=== PATIENT | male | born 1960 | race Caucasian/White ===

== ENCOUNTER 2016-10-29 08:32 | Observation (INO) | payer OTHER ==
[~2016-10-29] VITALS: Ht 188 cm; Wt 109.4 kg
[2016-10-29] VITALS (9 sets, daily range): BP systolic 121–150; BP diastolic 52–78
[~2016-10-29 08:32] MED LIST: ATEN1TAB3; PRD20T PO
[2016-10-29] MEDS ORDERED: POTA20TA15 (08:50)
[2016-10-29] MEDS ORDERED: CHOL500049 (08:50)
[2016-10-29] MEDS ORDERED: SERT50TA9 (08:50)
[2016-10-29] MEDS ORDERED: LACT10SO33 PO (08:52)
[2016-10-29] MEDS ORDERED: ATEN1TAB3 PO (08:53)
[2016-10-29] MEDS ORDERED: FURO40TA4 PO (08:53)
[2016-10-29] MEDS ORDERED: POTA-51 PO (08:53)
[2016-10-29 09:07] LABS: BASOPHILS % (AUTO) 1 % (0-10); EOSINOPHILS # (AUTO) 0.1 10^3/uL (0.0-0.3); EOSINOPHILS % (AUTO) 2 % (0-10); LYMPHOCYTES % (AUTO) 27 % (12-44); MEAN CORPUSCULAR HEMOGLOBIN 33 PG (25-34); MEAN CORPUSCULAR HGB CONC 35 G/DL (32-36); MEAN CORPUSCULAR VOLUME 93 FL (80-99); MEAN PLATELET VOLUME 9.9 FL (7.4-10.4); MONOCYTES # (AUTO) 0.5 X 10^3 (0.0-1.0); MONOCYTES % (AUTO) 14 % (0-12); NEUTROPHILS # (AUTO) 2.1 X 10^3 (1.8-7.8); NEUTROPHILS % (AUTO) 56 % (42-75); PLATELET COUNT 44 10^3/uL (130-400); RED BLOOD COUNT 3.51 10^6/uL (4.35-5.85); RED CELL DISTRIBUTION WIDTH 15.6 % (10.0-14.5); WHITE BLOOD COUNT 3.7 10^3/uL (4.3-11.0)
[2016-10-29 09:16] LABS: INR 1.7 (0.8-1.4); PROTHROMBIN TIME PATIENT 19.5 SEC (12.2-14.7)
--- NOTE | 2016-10-29 09:18 | ED General ---
General Chief Complaint: General Problems/Pain Stated Complaint: STOMACH BLOATING, SOA Nursing Triage Note: AMBULATED TO ROOM 03 WITH COMPLAINTS OF INCREASING ABD BLOATING, WEAKNESS, EDEMA IN LOWER LEGS, NOT URINATING FOR PAST 3 MONTHS. HAS BEEN TOLD HE IS END STAGE RENAL FAILURE. WAS SEEN BY DR ROMERO ON 10/22 Nursing Sepsis Screen: No Definite Risk Source of Information: Patient Exam Limitations: No Limitations History of Present Illness Time Seen by Provider: 09:16 Initial Comments Patient has a history of hepatitis C and alcoholism. He has been diagnosed with end-stage liver disease. He complains of increasing abdominal distention over the past few months. It now interferes with his respirations. Swelling in his feet. Urinary output is decreased. He has not yet seen a autocad detailer. Allergies and Home Medications Allergies Coded Allergies: No Known Drug Allergies (Unverified , 02/26/16) Home Medications Atenolol/Chlorthalidone 1 Each Tablet 1 EACH PO DAILY (Reported) Furosemide 40 Mg Tablet 40 MG PO DAILY (Reported) Lactulose 10 Gm/15 Ml Solution 10 GM PO (Reported) Potassium Chloride 20 Meq Tablet.er 40 MEQ PO BID (Reported) Constitutional: malaise weakness EENTM: no symptoms reported Respiratory: cough short of breath Cardiovascular: edema Gastrointestinal: abdominal pain Genitourinary: no symptoms reported Musculoskeletal: no symptoms reported Psychiatric/Neurological: No Symptoms Reported All Other Systems Reviewed Negative Unless Noted: Yes Past Utrwahq-Ksmqgt-Lmalyr Hx Patient Social History Alcohol Use: Past History Recreational Drug Use: Yes (PAST HX OF COCAINE, POT, ) Smoking Status: Current Everyday Smoker Recent Foreign Travel: No Contact w/Someone Who Travel: No Recent Infectious Disease Expo: No Recent Hopitalizations: No Surgeries HX Surgeries: Yes Surgeries: Orthopedic Respiratory Hx Respiratory Disorders: Yes Respiratory Disorders: COPD Cardiovascular Hx Cardiac Disorders: No Cardiac Disorders: Heart Attack, Hypertension Neurological Hx Neurological Disorders: No Genitourinary Hx Genitourinary Disorders: Yes Genitourinary Disorders: Renal Failure Gastrointestinal Hx Gastrointestinal Disorders: Yes Gastrointestinal Disorders: Abdominal Hernia, Hepatitis Musculoskeletal Hx Musculoskeletal Disorders: No Cancer Hx Cancer: No Psychosocial Hx Psychiatric Problems: No Reviewed Nursing Assessment Reviewed/Agree w Nursing PMH: Yes Physical Exam Vital Signs Vital Sign - Last 12Hours 10/29/16 10/29/16 08:42 09:06 Temp 98.0 Pulse 91 Resp 18 B/P 153/75 Pulse Ox 95 O2 Delivery Nasal Cannula O2 Flow Rate 2 Capillary Refill : Less Than 3 Seconds General Appearance: No Apparent Distress WD/WN Eyes: Bilateral Eye Scleral Icterus HEENT: PERRL/EOMI Pharynx Normal Neck: Supple Respiratory: Lungs Clear Normal Breath Sounds Cardiovascular: Regular Rate, Rhythm No Edema Gastrointestinal: Soft Distended (tense, distended, tympanic abdomen , positive shifting dullness) Back: Normal Inspection Extremity: Pedal Edema Neurologic/Psychiatric: Alert No Motor/Sensory Deficits Skin: Jaundice Progress/Results/Core Measures Results/Orders Lab Results Laboratory Tests Test 10/29/16 09:00 Range/Units Activated Partial Thromboplast Time 34 24-35 SEC Alanine Aminotransferase (ALT/SGPT) 20 0-55 U/L Albumin 2.3 L 3.2-4.5 G/DL Alkaline Phosphatase 68 40-136 U/L Ammonia 49 H 11-32 UMOL/L Anion Gap 12 5-14 MMOL/L Aspartate Amino Transf (AST/SGOT) 61 H 5-34 U/L B-Type Natriuretic Peptide 124.6 H <100.0 PG/ML BUN/Creatinine Ratio 23 Basophils # (Auto) 0.0 0.0-0.1 10^3/uL Basophils (%) (Auto) 1 0-10 % Blood Urea Nitrogen 23 H 7-18 MG/DL Calcium Level 8.2 L 8.5-10.1 MG/DL Carbon Dioxide Level 31 21-32 MMOL/L Chloride Level 94 L 98-107 MMOL/L Creatinine 0.98 0.60-1.30 MG/DL Eosinophils # (Auto) 0.1 0.0-0.3 10^3/uL Eosinophils (%) (Auto) 2 0-10 % Estimat Glomerular Filtration Rate > 60 Glucose Level 116 H 70-105 MG/DL Hematocrit 33 L 40-54 % Hemoglobin 11.4 L 13.3-17.7 G/DL INR Comment 1.7 H 0.8-1.4 Lymphocytes # (Auto) 1.0 1.0-4.0 X 10^3 Lymphocytes (%) (Auto) 27 12-44 % Magnesium Level 1.5 L 1.8-2.4 MG/DL Mean Corpuscular Hemoglobin 33 25-34 PG Mean Corpuscular Hemoglobin Concent 35 32-36 G/DL Mean Corpuscular Volume 93 80-99 FL Mean Platelet Volume 9.9 7.4-10.4 FL Monocytes # (Auto) 0.5 0.0-1.0 X 10^3 Monocytes (%) (Auto) 14 H 0-12 % Neutrophils # (Auto) 2.1 1.8-7.8 X 10^3 Neutrophils (%) (Auto) 56 42-75 % Platelet Count 44 L 130-400 10^3/uL Potassium Level 2.4 *L 3.6-5.0 MMOL/L Prothrombin Time 19.5 H 12.2-14.7 SEC Red Blood Count 3.51 L 4.35-5.85 10^6/uL Red Cell Distribution Width 15.6 H 10.0-14.5 % Sodium Level 137 135-145 MMOL/L Total Bilirubin 3.9 H 0.1-1.0 MG/DL Total Protein 7.8 6.4-8.2 G/DL Troponin I < 0.30 <0.30 NG/ML White Blood Count 3.7 L 4.3-11.0 10^3/uL Labs were reviewed My Orders Orders-TERRY HAWK MD Cbc With Automated Diff (10/29/16 08:37) Magnesium (10/29/16 08:37) Chest 1 View, Ap/Pa Only (10/29/16 08:37) Ekg Tracing (10/29/16 08:37) Cardiac Profile 1 (10/29/16 08:37) Comprehensive Metabolic Panel (10/29/16 08:37) Protime With Inr (10/29/16 08:37) Partial Thromboplastin Time (10/29/16 08:37) O2 (10/29/16 08:37) Monitor-Rhythm Ecg Trace Only (10/29/16 08:37) Saline Lock/Iv-Start (10/29/16 08:37) BNP (10/29/16 08:37) Ammonia (10/29/16 08:38) Us Paracentesis Initial [id number] (10/29/16 09:15) Magnesium Oxide Tablet (Mag Ox Tablet) (10/29/16 10:00) Potassium Chloride (Tablet) (Klor Con Ta (10/29/16 10:00) Vital Signs/I&O Vital Sign - Last 12Hours 10/29/16 10/29/16 08:42 09:06 Temp 98.0 Pulse 91 Resp 18 B/P 153/75 Pulse Ox 95 O2 Delivery Nasal Cannula O2 Flow Rate 2 Blood Pressure Mean: 101 Progress Note : Time: 10:08 Progress Note Spoke with patient about admission he agrees. Magnesium and potassium were replaced ECG Initial ECG Rhythm: Normal Sinus Initial ECG Impression: Nonspecific Changes Diagnostic Imaging Comments Date of Exam: 10/29/16 CHEST 1 VIEW, AP/PA ONLY Posterior Lopressor graft the chest. Indication constipation. Bloating. Findings: There is a minimal bibasilar atelectasis. The heart size is normal. No effusion or pneumothorax The mediastinum and lisa appear markable. Impression: Minimal bibasilar atelectasis. Departure Communication Time/Spoke to Admitting Phy: 10:06 Communication I spoke with Dr. Felipe and Dr. Fox who agreed to admit. Plan on paracentesis later today. Impression Impression: Primary Impression: massive ascites Additional Impressions: End stage liver disease Hypokalemia Hypomagnesemia Disposition: ADMITTED INPATIENT Condition: Stable Decision to Admit Reason: Admit from ER (General) Decision to Admit/Date: Oct 29, 2016 Time/Decision to Admit Time: 10:09 Departure-Patient Inst. Referrals: KATTY ROMERO MD (PCP) Primary Care Physician KIMBERLY WELSH (Family) Primary Care Physician TERRY HAWK MD Oct 29, 2016 09:18
[2016-10-29 09:25] LABS: ALANINE AMINOTRANSFERASE 20 U/L (0-55); ALBUMIN 2.3 G/DL (3.2-4.5); ANION GAP 12 MMOL/L (5-14); ASPARTATE AMINO TRANSFERASE 61 U/L (5-34); BILIRUBIN,TOTAL 3.9 MG/DL (0.1-1.0); BLOOD UREA NITROGEN 23 MG/DL (7-18); BUN/CREATININE RATIO 23; CALCIUM 8.2 MG/DL (8.5-10.1); CARBON DIOXIDE 31 MMOL/L (21-32); CHLORIDE 94 MMOL/L (98-107); CREATININE SERUM 0.98 MG/DL (0.60-1.30); GFR ESTIMATED > 60; GLUCOSE 116 MG/DL (70-105); MAGNESIUM 1.5 MG/DL (1.8-2.4); SODIUM 137 MMOL/L (135-145); TOTAL PROTEIN 7.8 G/DL (6.4-8.2)
[2016-10-29 09:27] LABS: POTASSIUM 2.4 MMOL/L (3.6-5.0)
--- NOTE | 2016-10-29 09:38 | Diagnostic Imaging Report ---
Posterior Lopressor graft the chest. Indication constipation. Bloating. Findings: There is a minimal bibasilar atelectasis. The heart size is normal. No effusion or pneumothorax The mediastinum and lisa appear markable. Impression: Minimal bibasilar atelectasis. Dictated by: Dictated on workstation # [id number]
[2016-10-29] MEDS ORDERED: KCL 10 MEQ TAB (MICRO K) PO ONE (10:00)
[2016-10-29] MEDS ORDERED: MAGNESIUM OXIDE (MAG-OX)400 MG TAB PO ONE (10:00)
[2016-10-29] MEDS ORDERED: NS W/KCL 20 MEQ/L 1,000 ML IV SCH (12:15)
[2016-10-29] MEDS ORDERED: CATHETER FLUSH 10 ML SYR IV PRN (12:15)
[2016-10-29] MEDS ORDERED: CHOL500049 PO (12:38)
[2016-10-29] MEDS ORDERED: RT-ALBUINH IH (12:38)
[2016-10-29] MEDS ORDERED: LIDOCAINE 1% INJ 20 ML (XYLOCAINE) VIAL ONE (14:25)
[2016-10-29] MEDS ORDERED: LIDOCAINE 1% INJ 20 ML (XYLOCAINE) VIAL INJ ONE (14:30)
[2016-10-29] MEDS ORDERED: NS IV 500 ML 500 ML ONE (14:44)
--- NOTE | 2016-10-29 14:45 | Consultation ---
History of Present Illness History of Present Illness Patient Consulted On(robinson/time) 10/29/16 14:40 History of Present Illness Surgery asked to consult regarding increasing abdominal distention, ascites. Pt is a 55 yo male with history of hepatitis C and alcoholism. He has been diagnosed with end-stage liver disease. He complains of increasing abdominal distention over the past few months. It now interferes with his respirations; "if I sit up or when I stand, I can't breath". Swelling in his feet. He also states he is having trouble urinating and it seems decreased. He has not yet seen a roving weight gauger; states he has no insurance and can't see one. He reports that he has "been going downhill for past 6 months". He stopped drinking at the " end of September"; used to drink a pint a day. Reports abd pain is minimal. Allergies and Home Medications Allergies Coded Allergies: No Known Drug Allergies (Unverified , 02/26/16) Home Medications Albuterol Sulfate 18 Gm Hfa.aer.ad 2 PUFF IH EVERY 4-6 HOURS PRN PRN SHORTNESS OF BREATH (Reported) Atenolol/Chlorthalidone 1 Each Tablet 1 TAB PO DAILY (Reported) Cholecalciferol (Vitamin D3) 50,000 Unit Capsule 50,000 UNITS PO Mo (Reported) Furosemide 40 Mg Tablet 40 MG PO DAILY (Reported) Lactulose 10 Gm/15 Ml Solution 10 ML PO BID (Reported) Potassium Chloride 20 Meq Tablet.er 20 MEQ PO BID (Reported) Past Wgyknyv-Oxtmay-Cwemdk Hx Patient Social History Alcohol Use: Past History (pint of [employer] daily for over 20 yrs) Recreational Drug Use: No Smoking Status: Current Everyday Smoker Recent Foreign Travel: No Contact w/Someone Who Travel: No Recent Infectious Disease Expo: No Recent Hopitalizations: No Physical Abuse Screen: No Sexual Abuse: No Immunizations Up To Date Date of Pneumonia Vaccine: Sep 22, 2016 Date of Influenza Vaccine: Sep 22, 2016 Seasonal Allergies Seasonal Allergies: No Surgeries HX Surgeries: Yes Surgeries: Orthopedic (left ankle surgery) Respiratory Hx Respiratory Disorders: Yes Respiratory Disorders: COPD Cardiovascular Hx Cardiac Disorders: No Cardiac Disorders: Heart Attack, Hypertension Neurological Hx Neurological Disorders: No Genitourinary Hx Genitourinary Disorders: Yes Genitourinary Disorders: Renal Failure Gastrointestinal Hx Gastrointestinal Disorders: Yes Gastrointestinal Disorders: Abdominal Hernia, Hepatitis Musculoskeletal Hx Musculoskeletal Disorders: No Musculoskeletal Disorders: Arthritis, Chronic Back Pain Endocrine Hx Endocrine Disorders: No HEENT HX ENT Disorders: No Loss of Vision: Denies Cancer Hx Cancer: No Psychosocial Hx Psychiatric Problems: No Behavioral Health Disorders: Anxiety Blood Transfusions Hx Blood Disorders: No Adverse Reaction to a Blood Tr: No Reviewed Nursing Assessment Reviewed/Agree w Nursing PMH: Yes Family Medical History Significant Family History: Heart Disease (mother had CHF), Cancer (Aunt had "cancer of the lymph nodes") Review of Systems-General Constitutional: No chills, No diaphoresis, malaise weakness weight gain EENTM: No double vision, No epistaxis, No mouth swelling, No throat swelling Respiratory: dyspnea on exertionNo hemoptysis, short of breathNo stridor Cardiovascular: No chest pain, edemaNo palpitations Gastrointestinal: see HPINo constipation, jaundiceNo melena Genitourinary: decreased outputNo hematuria, hesitancy Musculoskeletal: back pain joint pain muscle stiffness muscle cramps muscle weakness Skin: change in colorNo hx of skin cancer, No pruritus Psychiatric/Neurological: Denies Anxiety, Denies Depressed, Denies Headache, Denies Paresthesia, Denies Seizure Other pt denies any heat or cold intolerance. pt states if he cuts himself he bleeds for a while Physical Exam-General Problems Physical Exam Vital Signs Vital Sign - Last 12Hours 10/29/16 10/29/16 08:42 09:06 Temp 98.0 Pulse 91 Resp 18 B/P 153/75 Pulse Ox 95 O2 Delivery Nasal Cannula O2 Flow Rate 2 Capillary Refill : Less Than 3 Seconds General Appearance: WD/WN moderate distress Eyes: Bilateral Eye EOMI, Bilateral Eye PERRL HEENT: pharynx normal scleral icterus (R) scleral icterus (L) Neck: full range of motion supple normal inspection Respiratory: lungs clear normal breath sounds no respiratory distress no accessory muscle use Cardiovascular: regular rate, rhythm no JVD no murmur Gastrointestinal: soft no organomegaly no pulsatile mass distended (looks nine months ) other (+ fluid wave) Rectal: deferred Genital/Rectal: normal genital exam Back: no CVA tenderness no vertebral tenderness Extremities: non-tender no calf tenderness pedal edema (+2 almost +3 pitting edema) Neurologic/Psychiatric: time clock inspector II-XII nml as tested normal mood/affect oriented x 3 other (+asterixis) Skin: warm/dry jaundice (pt appears mildly yellow) Lymphatic: no adenopathy (neck, axilla or groin) Data Review Labs Laboratory Tests 10/29/16 09:00: Activated Partial Thromboplast Time 34, Alanine Aminotransferase (ALT/SGPT) 20, Albumin 2.3L, Alkaline Phosphatase 68, Ammonia 49H, Anion Gap 12, Aspartate Amino Transf (AST/SGOT) 61H, B-Type Natriuretic Peptide 124.6H, BUN/Creatinine Ratio 23, Basophils # (Auto) 0.0, Basophils (%) (Auto) 1, Blood Urea Nitrogen 23H, Calcium Level 8.2L, Carbon Dioxide Level 31, Chloride Level 94L, Creatinine 0.98, Eosinophils # (Auto) 0.1, Eosinophils (%) (Auto) 2, Estimat Glomerular Filtration Rate > 60, Glucose Level 116H, Hematocrit 33L, Hemoglobin 11.4L, INR Comment 1.7H, Lymphocytes # (Auto) 1.0, Lymphocytes (%) (Auto) 27, Magnesium Level 1.5L, Mean Corpuscular Hemoglobin 33, Mean Corpuscular Hemoglobin Concent 35, Mean Corpuscular Volume 93, Mean Platelet Volume 9.9, Monocytes # (Auto) 0.5, Monocytes (%) (Auto) 14H, Neutrophils # (Auto) 2.1, Neutrophils (%) (Auto) 56, Platelet Count 44L, Potassium Level 2.4*L, Prothrombin Time 19.5H, Red Blood Count 3.51L, Red Cell Distribution Width 15.6H , Sodium Level 137, Total Bilirubin 3.9H, Total Protein 7.8, Troponin I < 0.30, White Blood Count 3.7L Assessment/Plan Assessment/Plan Assessment/Plan 1. Liver Failure with Ascites - pt was told he needs to see Studio Camera Operator, whether that is getting help to see someone local or going up to free clinic at . Plan for here is to get transfused with FFP and then Paracentesis will be performed by IR. 2. Coagulopathy secondary to #1 3. Hypokalemia -replace Potassium 4. Thrombocytopenia probably secondary to #1 5. Jaundice secondary to #1 6. Elevated Ammonia - would start Lactulose Clinical Quality Measures DVT/VTE Risk/Contraindication: Risk Factor Score Per Nursin RFS Level Per Nursing on Admit: 3=High JOSE DAVID HUNTLEY DO Oct 29, 2016 14:45
--- NOTE | 2016-10-29 17:05 | Diagnostic Imaging Report ---
EXAMINATION: Ultrasound-guided peritoneal drain placement. INDICATION: Ascites. CONSENT: Informed consent was obtained from the patient. The risks, benefits, potential complications and alternatives were reviewed and all questions answered to the patient's satisfaction. The patient's vital signs, cardiac rhythm, and pulse oximetry with observed throughout the procedure by qualified nursing personnel. Sedation/Medications: 2 units of FFP was administered intravenously . FINDINGS: ascites. PROCEDURE: After sterile preparation and draping, 1% lidocaine was utilized for local anesthesia. Following sterile preparation and local anesthetic and using 2 D real-time ultrasound for guidance, a 5 Niuean sheath with trocar was introduced into the peritoneal fluid collection in the right lower quadrant from an anterior approach. Initial fluid return was thin, serous fluid. The 5 Niuean drainage catheter is left in place for drainage. The patient was transferred to the floor for from continuous drainage and instructions were given for removal of the peritoneal catheter once the drainage stops. No immediate complications. IMPRESSION: Successful ultrasound peritoneal drain placement for ascites. Dictated by: Dictated on workstation # [id number]
[2016-10-29] MEDS: KCL 20 MEQ TAB (K-DUR) PO SCH (18:15)
[2016-10-29] MEDS: LACTULOSE SYRUP 10GM/15ML (ENULOSE) 30ML UDC PO SCH (21:00)
[2016-10-29] MEDS: CATHETER FLUSH 10 ML SYR IV SCH (21:49)
[2016-10-30] VITALS: BP 115/58
[2016-10-30 04:00] VITALS: BP 119/57
[2016-10-30] MEDS: KCL 20 MEQ TAB (K-DUR) PO SCH (06:18)
[2016-10-30] MEDS: CATHETER FLUSH 10 ML SYR IV SCH (06:18)
[2016-10-30 08:00] VITALS: BP 123/59
[2016-10-30] MEDS: LACTULOSE SYRUP 10GM/15ML (ENULOSE) 30ML UDC PO SCH (08:56)
[2016-10-30 09:42] LABS: BASOPHILS % (AUTO) 0 % (0-10); EOSINOPHILS % (AUTO) 2 % (0-10); LYMPHOCYTES # (AUTO) 0.6 X 10^3 (1.0-4.0); LYMPHOCYTES % (AUTO) 23 % (12-44); MEAN CORPUSCULAR HEMOGLOBIN 33 PG (25-34); MEAN CORPUSCULAR HGB CONC 34 G/DL (32-36); MEAN CORPUSCULAR VOLUME 95 FL (80-99); MEAN PLATELET VOLUME 9.5 FL (7.4-10.4); MONOCYTES # (AUTO) 0.3 X 10^3 (0.0-1.0); MONOCYTES % (AUTO) 13 % (0-12); NEUTROPHILS # (AUTO) 1.6 X 10^3 (1.8-7.8); NEUTROPHILS % (AUTO) 62 % (42-75); RED BLOOD COUNT 2.97 10^6/uL (4.35-5.85); RED CELL DISTRIBUTION WIDTH 15.6 % (10.0-14.5); WHITE BLOOD COUNT 2.6 10^3/uL (4.3-11.0)
[2016-10-30 09:43] LABS: PLATELET COUNT 33 10^3/uL (130-400)
[2016-10-30 10:01] LABS: ALANINE AMINOTRANSFERASE 17 U/L (0-55); ANION GAP 5 MMOL/L (5-14); ASPARTATE AMINO TRANSFERASE 46 U/L (5-34); BILIRUBIN,TOTAL 3.4 MG/DL (0.1-1.0); BLOOD UREA NITROGEN 21 MG/DL (7-18); BUN/CREATININE RATIO 23; CALCIUM 7.9 MG/DL (8.5-10.1); CARBON DIOXIDE 34 MMOL/L (21-32); CHLORIDE 97 MMOL/L (98-107); CREATININE SERUM 0.93 MG/DL (0.60-1.30); GFR ESTIMATED > 60; GLUCOSE 192 MG/DL (70-105); POTASSIUM 2.9 MMOL/L (3.6-5.0); SODIUM 136 MMOL/L (135-145); TOTAL PROTEIN 6.2 G/DL (6.4-8.2)
[2016-10-30] MEDS ORDERED: RX-ALBUTEROL INHALER (VENTOLIN HFA) 18 GM IH PRN (10:15)
[2016-10-30] MEDS ORDERED: SPIR50TA PO (10:17)
--- NOTE | 2016-10-30 10:19 | Discharge Instructions ---
Discharge Instructions Discharge Medications New, Converted or Re-Newed RX: Transmitted to Pharmacy Continued Medications: Albuterol Sulfate (Ventolin Hfa) 18 Gm Hfa.aer.ad 2 PUFF IH EVERY 4-6 HOURS PRN SHORTNESS OF BREATH INHALER Atenolol/Chlorthalidone (Atenolol-Chlorthalidone 50-25) 1 Each Tablet 1 TAB PO DAILY TAB Cholecalciferol (Vitamin D3) (Vitamin D3) 50,000 Unit Capsule 91147 UNITS PO Mo Furosemide (Furosemide) 40 Mg Tablet 40 MG PO DAILY TAB Lactulose (Lactulose) 10 Gm/15 Ml Solution 10 ML PO BID EA Potassium Chloride (Potassium Chloride) 20 Meq Tablet.er 20 MEQ PO BID TAB Patient Instructions Goal/Follow Up Appt: Dr Jade at [facility] as scheduled Patient Instructions: Continue alcohol cessation Activity & Diet Discharge Diet: No Restrictions Activity as Tolerated: Yes JACKELYN THOMPSON DO Oct 30, 2016 10:19
[2016-10-30] MEDS ORDERED: FUROSEMIDE 40 MG/4 ML INJ (LASIX) IVP NR (10:30)
[2016-10-30] MEDS ORDERED: KCL 20 MEQ TAB (K-DUR) PO NR (10:30)
[2016-10-30] MEDS ORDERED: RT-ALBUTEROL SULF 2.5 MG/3 ML PRE-MIX VIAL INH PRN (10:45)
--- NOTE | 2016-10-30 11:22 | Short Stay Summary-Hospitalist ---
HPI History of Present Illness: HPI/Chief Complaint CC: Abdominal Swelling HPI: This is a 55yoWM end stage alcohol cirrhosis pt that presents in need of paracentesis. He has yet to become established with Hepatology. He had interventional radiology perform paracentesis and has had good result with that procedure. Pt has had an isolated low-grade fever at 0400 this morning. Repeat CBC showed WBC 2.6 from 3.7, Hgb 9.7 from 11.4 and platelets 33 from 34, CMP shows K+ 2.9 from 2.4, Bilirubin 3.4, and Ammonia 49. Pt is receiving Lactulose. area attendant: Pt has not received Lasix. Patient Interview: Pt states that his catheter was removed last night. Pt states that he is ready to go home. Pt takes K+ supplements at home. Pt takes Lactulose 2tbs BID. 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 Physical exam stable. Pt denies hx of infection in stomach. This is the first time pt has had stomach drained. Scribed by Randell Groves under the direct supervision of Dr. Felipe. Source: patient Date Seen 10/30/16 Attending Physician Chica Felipe Julie A MD Referring Physician Date of Admission Oct 29, 2016 at 10:05 Home Medications & Allergies Home Medications Reviewed patient Home Medication Reconciliation Form Allergies Coded Allergies: No Known Drug Allergies (Unverified , 02/26/16) Past Nhllkan-Kflzsj-Zsamnx Hx Patient Social History Marrital Status: Employed/Student: unemployed Alcohol Use: Past History (pint of [place] whiskey daily for over 20 yrs) Recreational Drug Use: No Smoking Status: Current Everyday Smoker Physical Abuse Screen: No Sexual Abuse: No Recent Foreign Travel: No Contact w/other who traveled: No Recent Hopitalizations: No Recent Infectious Disease Expo: No Immunizations Up To Date Date of Pneumonia Vaccine: Sep 22, 2016 Date of Influenza Vaccine: Sep 22, 2016 Seasonal Allergies Seasonal Allergies: No Surgeries HX Surgeries: Yes Surgeries: Orthopedic (left ankle surgery) Respiratory Hx Respiratory Disorders: Yes Respiratory Disorders: COPD Cardiovascular Hx Cardiovascular Disorders: Yes Cardiac Disorders: Coronary Artery Disease, Heart Attack, Hypertension Neurological Hx Neurological Disorders: No Genitourinary Hx Genitourinary Disorders: Yes Genitourinary Disorders: Renal Failure Gastrointestinal Hx Gastrointestinal Disorders: Yes Gastrointestinal Disorders: Abdominal Hernia, Hepatitis, Cirrhosis Musculoskeletal Hx Musculoskeletal Disorders: Yes Musculoskeletal Disorders: Arthritis, Chronic Back Pain Endocrine Hx Endocrine Disorders: No HEENT HX ENT Disorders: No Loss of Vision: Denies Cancer Hx Cancer: No Psychosocial Hx Psychiatric Problems: No Behavioral Health Disorders: Anxiety Blood Transfusions Hx Blood Disorders: No Adverse Reaction to a Blood Tr: No Reviewed Nursing Assessment Reviewed/Agree w Nursing PMH: Yes Family Medical History Significant Family History: Heart Disease (mother had CHF), Cancer (Aunt had "cancer of the lymph nodes") Review of Systems Constitutional: see HPI EENTM: no symptoms reported Respiratory: no symptoms reported Cardiovascular: no symptoms reported Gastrointestinal: abdominal pain (LLQ) Genitourinary: no symptoms reported Musculoskeletal: no symptoms reported Skin: no symptoms reported Psychiatric/Neurological: No Symptoms Reported All Other Systems Reviewed Negative Unless Noted: Yes Physical Exam Physical Exam Vital Signs Vital Sign - Last 12Hours 10/29/16 10/29/16 08:42 09:06 Temp 98.0 Pulse 91 Resp 18 B/P 153/75 Pulse Ox 95 O2 Delivery Nasal Cannula O2 Flow Rate 2 Capillary Refill : Less Than 3 Seconds General Appearance: No Apparent Distress WD/WN Chronically ill Eyes: Bilateral Eye Normal Inspection, Bilateral Eye PERRL HEENT: PERRL/EOMI Normal ENT Inspection Pharynx Normal Neck: Full Range of Motion Normal Inspection Non Tender Supple Carotid Bruit Respiratory: Chest Non Tender Lungs Clear Normal Breath Sounds No Accessory Muscle Use No Respiratory Distress Cardiovascular: Regular Rate, Rhythm No Edema No Gallop No JVD No Murmur Normal Peripheral Pulses Gastrointestinal: Normal Bowel Sounds No Organomegaly No Pulsatile Mass Non Tender Soft Other (ascites noted no ttp) Back: Normal Inspection No CVA Tenderness No Vertebral Tenderness Extremity: Normal Capillary Refill Normal Inspection Normal Range of Motion Non Tender No Calf Tenderness No Pedal Edema Neurologic/Psychiatric: Alert Oriented x3 No Motor/Sensory Deficits Normal Mood/Affect Skin: Normal Color Warm/Dry Lymphatic: No Adenopathy Results Results/Procedures Lab Laboratory Tests 10/29/16 09:00 10/30/16 09:31 Short Stay Diagnosis Discharge Diagnosis-Short Stay Admission Diagnosis Assessment: Severe abdominal ascites due to end stage liver disease Previous alcoholic sober since 10/07 HTN Final Discharge Diagnosis Assessment: Severe abdominal ascites due to end stage liver disease Previous alcoholic sober since 10/07 HTN Hypokalemia Conclusion Plan Plan: Check BMP Thursday due to potassium supplement with Acei and Lasix and addition of Aldactone Lasix 20mg once IV now before DC K+ 40meq once along with his scheduled supp Start Aldactone 50mg daily DC meds to [facility] Close follow-up with Dr. Jade at [facility] Clinical Quality Measures DVT/VTE Risk/Contraindication: Risk Factor Score Per Nursin RFS Level Per Nursing on Admit: 3=High CHICA FELIPE DO Oct 30, 2016 11:21
[2016-10-30 12:09] VITALS: BP 123/59
[2016-10-30] MEDS ORDERED: KCL 20 MEQ TAB (K-DUR) PO SCH (17:00)
[2016-10-30] MEDS ORDERED: LACTULOSE PO SCH (21:00)
[2016-10-30] MEDS ORDERED: LACTULOSE SYRUP 10GM/15ML (ENULOSE) 30ML UDC PO SCH (21:00)
[2016-10-30] MEDS ORDERED: NON-FORMULARY MEDICATION 1 EA EA (Potassium Chloride 20 MEQ) PO SCH (21:00)
[2016-10-31] MEDS ORDERED: CHLORTHALIDONE 25 MG (HYGROTON) TABLET PO SCH (09:00)
[2016-10-31] MEDS ORDERED: ATENOLOL 50 MG (TENORMIN) TAB PO SCH (09:00)
[2016-11-03] MEDS ORDERED: [UNRECOGNIZED DRUG - OTHER] PO SCH (10:15)
[2016-11-03] MEDS ORDERED: CHOLECALCIFEROL 50000 UNIT PO SCH (10:15)
== END 2016-10-30 10:18 | disposition home or self-care (01) ==
LOC: EDUNIT# 08:32 → ER 08:34 → 4TH 10:05 → UNDOADMOB 10:05 → 4TH 11:50 → UNDODISOB 10-30 10:18
PROVIDERS: ADMIT Internal Medicine; ATTEND Internal Medicine
DX: K70.31 Alcoholic cirrhosis of liver with ascites (principal); F10.20 Alcohol dependence, uncomplicated; B19.20 Unspecified viral hepatitis C without hepatic coma; I10 Essential (primary) hypertension; J44.9 Chronic obstructive pulmonary disease, unspecified; E87.6 Hypokalemia; E83.42 Hypomagnesemia; D69.6 Thrombocytopenia, unspecified; F17.210 Nicotine dependence, cigarettes, uncomplicated
CPT/HCPCS: 36415; 71010; 75989; 80053; 82140; 83735; 83880; 84484; 85025; 85610; 85730; 86900; 86901; 93005; 93041; G0378

== ENCOUNTER 2016-11-10 09:48 | Emergency (ER) | payer OTHER ==
[~2016-11-10 09:48] MED LIST changes: +ATEN1TAB3 PO; +CHOL500049; +CHOL500049 PO; +FURO40TA4 PO; +LACT10SO33 PO; +POTA-51 PO; +POTA20TA15; +RT-ALBUINH IH; +SERT50TA9; +SPIR50TA PO
== END 2016-11-10 10:21 | disposition left against medical advice (07) ==
LOC: EDUNIT# 09:48 → ER 09:51
DX: K74.60 Unspecified cirrhosis of liver (principal); Z53.21 Procedure and treatment not carried out due to patient leaving prior to being seen by health care provider

== ENCOUNTER 2016-11-12 11:26 | Outpatient (CLI) | payer OTHER ==
[~2016-11-12] VITALS: Ht 188 cm; Wt 108.1 kg
[2016-11-12 11:52] VITALS: BP 115/63
[2016-11-12 12:23] LABS: BASOPHILS % (AUTO) 1 % (0-10); EOSINOPHILS # (AUTO) 0.1 10^3/uL (0.0-0.3); EOSINOPHILS % (AUTO) 3 % (0-10); LYMPHOCYTES # (AUTO) 0.9 X 10^3 (1.0-4.0); LYMPHOCYTES % (AUTO) 22 % (12-44); MEAN CORPUSCULAR HEMOGLOBIN 33 PG (25-34); MEAN CORPUSCULAR HGB CONC 35 G/DL (32-36); MEAN CORPUSCULAR VOLUME 94 FL (80-99); MEAN PLATELET VOLUME 9.9 FL (7.4-10.4); MONOCYTES # (AUTO) 0.4 X 10^3 (0.0-1.0); MONOCYTES % (AUTO) 9 % (0-12); NEUTROPHILS # (AUTO) 2.7 X 10^3 (1.8-7.8); NEUTROPHILS % (AUTO) 66 % (42-75); PLATELET COUNT 53 10^3/uL (130-400); RED BLOOD COUNT 3.72 10^6/uL (4.35-5.85)
[2016-11-12 12:37] LABS: INR 1.6 (0.8-1.4); PROTHROMBIN TIME PATIENT 18.8 SEC (12.2-14.7)
[2016-11-12 12:44] LABS: ALANINE AMINOTRANSFERASE 26 U/L (0-55); ALBUMIN 2.4 G/DL (3.2-4.5); ANION GAP 8 MMOL/L (5-14); ASPARTATE AMINO TRANSFERASE 71 U/L (5-34); BILIRUBIN,TOTAL 3.4 MG/DL (0.1-1.0); BLOOD UREA NITROGEN 22 MG/DL (7-18); BUN/CREATININE RATIO 21; CALCIUM 8.4 MG/DL (8.5-10.1); CARBON DIOXIDE 27 MMOL/L (21-32); CHLORIDE 98 MMOL/L (98-107); CREATININE SERUM 1.05 MG/DL (0.60-1.30); GFR ESTIMATED > 60; GLUCOSE 162 MG/DL (70-105); POTASSIUM 3.5 MMOL/L (3.6-5.0); SODIUM 133 MMOL/L (135-145); TOTAL PROTEIN 7.9 G/DL (6.4-8.2)
== END 2016-11-12 15:54 | disposition home or self-care (01) ==
LOC: PREOP 11:26
PROVIDERS: ATTEND Surgery
DX: Z01.812 Encounter for preprocedural laboratory examination (principal); R18.8 Other ascites
CPT/HCPCS: 36415; 80053; 85025; 85610

== ENCOUNTER 2016-11-13 10:19 | Day surgery (SDC) | payer OTHER ==
[~2016-11-13] VITALS: Ht 188 cm; Wt 108.1 kg
[2016-11-13 10:44] VITALS: BP 138/69
[2016-11-13] MEDS ORDERED: LACTATED RINGERS 1,000 ML IV PRN (10:57)
--- NOTE | 2016-11-13 11:45 | Progress Note-Pre Operative ---
Pre-Operative Progress Note H&P Reviewed The H&P was reviewed, patient examined and no changes noted. Date H&P Reviewed: Nov 13, 2016 Time H&P Reviewed: 11:28 Pre-Operative Diagnosis: Cirrhosis with ascites JOSE DAVID HUNTLEY DO Nov 13, 2016 11:45
[2016-11-13] MEDS ORDERED: MIDAZOLAM 2 MG/2 ML (VERSED) VIAL ONE (11:54)
[2016-11-13] MEDS ORDERED: proPOfol 200 MG/20 ML (DIPRIVAN) VIAL IV ONE (11:54)
[2016-11-13] MEDS ORDERED: fentaNYL INJECTION 100 MCG/2 ML AMP ONE (11:55)
[2016-11-13] MEDS ORDERED: ceFAZolin 1,000 MG (ANCEF) VIAL ONE (12:13)
[2016-11-13] MEDS ORDERED: ceFAZolin 2 GM/50 ML NS 50 ML IV ONE (12:15)
--- NOTE | 2016-11-13 12:49 | Progress Note-Post Operative ---
Post-Operative Progess Note Film Examiner None Pre-Operative Diagnosis Cirrhosis with ascites Post-Operative Diagnosis same Post-Op Procedure Note Date of Procedure: Nov 13, 2016 Name of Procedure: Insertion of PleurX catheter with US guidance Anesthesia Type MAC with local Estimated blood loss (mL): scant Packing: none Specimen(s) collected 5000 ml of Ascitic fluid JOSE DAVID HUNTLEY DO Nov 13, 2016 12:49
--- NOTE | 2016-11-13 12:52 | Discharge Inst-Surgical ---
Discharge Inst-Surgical Depart Medication/Instructions New, Converted or Re-Newed RX: Other Patient Instructions Follow up Appt: Make appointment for 1 week. Call [phone] Instructions: No lifting greater than 10 pounds. No strenuous activity. May shower in 24 hours, no tub bath or soaking. Use incentive spirometer at home as directed. No Smoking Skin/Wound Care: Leave dressing in place, do not remove. Symptoms to Report: Appetite Changes, Extremity Discoloration, Numbness/Tingling, Swelling Increased , Bleeding Excessive, Eyesight Changes, Pain Increased, Urine Color Change, Constipation(Persistent), Fever over 101 degree F, Pain/Pressure in chest, Urinating Difficulty, Cough Up/Vomit Blood, Heart Beat Irreg/Pounding, Pain/ Pressure in jaw, Vaginal Bleeding Increase, Cramps in feet or legs, Lightheadedness, Pain/Pressure in shoulder, Diarrhea(Persistent), Memory Changes Suddenly, Questions/Concerns, Weight gain consecutive days, Dizziness/ Fainting, Nausea/Vomiting, Shortness of Breath, Weight gain over 2 pounds If questions or concerns contact your physician Or seek help at emergency department. Activity Activity as Tolerated: Yes Diet Discharge Diet: No Restrictions Skin/Wound Care Infection Signs and Symptoms: Increased Redness, Foul Odor of Wound, Increased Drainage, Increased Swelling, Temperature Above 101 F Bathing Instructions: Shower Operative Area Clean and Dry: Do Not Remove Bandage JOSE DAVID HUNTLEY DO Nov 13, 2016 12:52
--- NOTE | 2016-11-13 13:03 | Diagnostic Imaging Report ---
PROCEDURE: US Abdomen, limited. TECHNIQUE: Multiple realtime grayscale images were obtained over the abdomen in various projections. INDICATION: Abdominal pain and distention due to ascites. DISCUSSION: Limited sonographic evaluation the abdomen demonstrates large ascites. Overlying soft tissues were marked for Pleurx drain placement by the operating team. Please see the operative report. IMPRESSION: 1. Ascites. Dictated by: Dictated on workstation # [id number]
[2016-11-13 13:25] VITALS: BP 111/58
[2016-11-13] MEDS ORDERED: MEPERIDINE (DEMEROL) INJ 50 MG/ML IVP PRN (13:45)
[2016-11-13] MEDS ORDERED: morphine INJ 10 MG/ML 1ML (SYR OR VIAL) IVP PRN (13:45)
[2016-11-13] MEDS ORDERED: ONDANSETRON 4 MG/2 ML (SDV) Z0FRAN IVP PRN (13:45)
[2016-11-13 13:55] VITALS: BP 111/55
[2016-11-13 14:30] VITALS: BP 111/55
--- NOTE | 2016-11-14 11:37 | OPERATIVE REPORT ---
PROCEDURE PHYSICIAN: JOSE DAVID FOX DATE OF PROCEDURE: PREOPERATIVE DIAGNOSIS: Cirrhosis with ascites. POSTOPERATIVE DIAGNOSIS: Cirrhosis with ascites. PROCEDURE: Insertion of Pleurx catheter with ultrasound guidance. SURGEON: Dr. Fox FILAMENT MAKER: None. ANESTHESIA: MAC with local lidocaine. BLOOD LOSS: Scant. FLUIDS: Minimal. POSTOPERATIVE: Stable. INDICATIONS FOR THE PROCEDURE: The patient is a 55-year-old male who unfortunately had some cirrhosis, end-stage liver disease with uncontrolled ascites. He is having trouble eating, peeing because of the amount of pressure from the fluid in his abdomen. Recently he was drained in the hospital about a week ago and already filled up again. FINDINGS: The patient had a Pleurx catheter placed with about 5,000 cc of ascitic fluid drained. PROCEDURE NOTE: After informed consent was obtained patient brought to the operating room, placed on table in supine position. He was sterilely prepped and draped in the normal fashion. Ultrasound machine was then used with wireless technician in the room. Placed the probe in the right lower quadrant. Found a good pocket. Marked this area and then infiltrated the skin with local. Made a small stab incision with a number 11 blade, carried down through skin into subcutaneous tissue and then using the ultrasound watched the needle enter into the abdominal cavity and into this area I got a good flash of ascitic fluid. Removed the needle and then placed the catheter that had been over the needle down into the intestine and then placed a guidewire down to the catheter using Seldinger technique. At this point then about 6 cm superiorly on the abdomen , made another small stab incision going down through the skin with a number 11 blade and then used the tunneling device tunneled from the superior incision to the inferior incision and brought the Pleurx catheter through so that the cuff was right in the middle of the 2 incisions and at this point left this in position and then over the guidewire I placed a dilator using the Seldinger technique. I dilated once and then dilated with a larger dilator and the catheter sheath went in easily. Then removed the inner portion and the guidewire and then placed a catheter down the sheath using Seldinger technique. It went in easily and then removed this sheath. At this point then sutured with an 0 silk suture the catheter to hold it in place. Closed the small stab incision of this lower incision with 4-0 undyed Monocryl single subcuticular stitch and then drained 5,000 ccs of ascitic fluid. Once this was done, the area was clean and dry. Dermabond used on the smallest incision and then drain sponge to protect the abdomen was placed and then Tegaderm placed over to hold everything in place. It went in nicely. The patient was then transferred to recovery room in stable condition. Sponge, instrument and needle counts were correct at the end of the case. Job ID: [id number] Dictated Date: 11/13/2016 12:56:05 Stitcher Around Date: 11/14/2016 11:18:54 / josiah
== END 2016-11-13 14:30 | disposition home or self-care (01) ==
LOC: SDC 10:19
PROVIDERS: ATTEND Surgery
DX: R18.8 Other ascites (principal); K74.60 Unspecified cirrhosis of liver; K72.90 Hepatic failure, unspecified without coma
CPT/HCPCS: 76705; 94664

== ENCOUNTER → 2016-11-21 | Outpatient (CLI) | payer OTHER ==
--- NOTE | 2016-11-21 10:55 | Diagnostic Imaging Report ---
Left breast ultrasound. INDICATION: Gynecomastia. COMPARISON: 07/15/2016. FINDINGS: Hypoechoic retroareolar region is seen measuring 3.5 x 0.8 x 2.3 cm. This is slightly smaller compared to the previous study. No other lesion is seen in the four quadrants in the retroareolar region. IMPRESSION: Slightly smaller retroareolar lesion in the left breast with pathology results from prior biopsy compatible with gynecomastia. Clinical followup is recommended. ACR BI-RADS Category 2: Benign findings. Result letter will be mailed to the patient. Note: At least 10% of breast cancer is not imaged by mammography. Dictated by: Dictated on workstation # [id number]
--- NOTE | 2016-11-21 10:57 | Diagnostic Imaging Report ---
Left breast diagnostic mammogram. INDICATION: Gynecomastia. Biopsy was performed six months ago with pathology results demonstrating benign findings suggestive of gynecomastia. FINDINGS: Again seen is a large retroareolar focal asymmetry seen in the left breast. There is a biopsy clip in the retroareolar region. Appearance is not significantly changed from the previous exam, and the findings are likely related to gynecomastia. IMPRESSION: Findings generally stable from prior exam and likely related to gynecomastia. Ultrasound evaluation pending. ACR BI-RADS Category 0: Incomplete. (Needs additional imaging evaluation). Result letter will be mailed to the patient. Note: At least 10% of breast cancer is not imaged by mammography. Dictated by: Dictated on workstation # [id number]
== END ==
LOC: RAD 08:10
PROVIDERS: ATTEND Nurse Practitioner Community Health
DX: N62 Hypertrophy of breast (principal)
CPT/HCPCS: 76641

== ENCOUNTER 2017-03-14 19:35 | Emergency (ER) | payer OTHER ==
[~2017-03-14] VITALS: Ht 188 cm; Wt 81.2 kg
[2017-03-14] MEDS ORDERED: NS IV 1000 ML 1,000 ML IV ONE (19:50)
--- NOTE | 2017-03-14 19:50 | ED General ---
General Chief Complaint: General Problems/Pain Stated Complaint: LOW BLOOD PRESSURE Nursing Triage Note: to ED 8 by wheelchair with reports of end stage liver disease, associated weakness, tremors and general malaise. Nursing Sepsis Screen: No Definite Risk Source of Information: Patient, Other (2 FEMALE FRIENDS) History of Present Illness Time Seen by Provider: 19:50 Initial Comments PT ARRIVES VIA POV FROM HOME WITH 2 FEMALES/CARETAKERS PT WITH END STAGE LIVER FAILURE PT IS ON HOSPICE FOR 2 MONTHS, BUT DID NOT CALL HOSPICE NURSE PRIOR TO COMING TO ER--STATES HE CAME TONIGHT BECAUSE HE "FELT BAD" --GENERALIZED WEAKNESS, AND NO ENERGY PT HAS BEEN GETTING DIZZY ON STANDING FOR THE LAST FEW DAYS, AND TODAY WHEN HE STOOD UP HE BRIEFLY PASSED OUT-FELL BACK INTO CHAIR--NO INJURY FEMALE WITH PT STATES THAT HIS BP WAS LOW 77/44 TODAY AND PULSE HIGH 73--WAS ON BP MEDICATIONS BUT THEY WERE DC'D 6 WEEKS AGO DUE TO HYPOTENSION PT HAS A PERITONEAL TAP IN PLACE, AND SHE HAS BEEN TAKING OFF 2 LITERS OF FLUID A DAY, BUT YESTERDAY AND TODAY HAS ONLY BEEN ABLE TO TAKE OF 1 LITER NORMALLY ABDOMEN IS VERY DISTENDED, BUT HAS NOT BEEN FOR THE LAST COUPLE OF DAYS NORMALLY HIS FEET ARE VERY SWOLLEN, BUT NOT FOR THE LAST COUPLE OF DAYS PT HAS HAD DECREASED URINE OUTPUT THE LAST COUPLE OF DAYS HAS LOST 39# IN LAST 6 WEEKS LAST FEW DAYS HE HAS HAD TREMORS SO BAD THAT HE CAN'T FEED HIMSELF HAS HAD INCREASED LETHARGY /WEAKNESS THE LAST COUPLE OF DAYS HAS HAD SUBJECTIVE LOW GRADE FEVER OFF AND ON X 3 DAYS HAS ONGOING NAUSEA AND VOMITING--LAST EMESIS WAS ONE TIME 2 DAYS AGO, AND ONE TIME HE VOMITED UP BLOOD HAD SOME ONION RINGS AND WATER AROUND 1700 HAD ONGOING DIARRHEA FROM LACTULOSE, BUT ONLY HAS 1-2 BM'S A DAY, AND LAST BM WAS YESTERDAY HAS ONGOING SHORTNESS OF BREATH, AND IS NO DIFFERENT TODAY NO CHEST PAIN NO COUGH PT HAS COPD AND HAS INHALERS AND NEBULIZER AT HOME, BUT HAS NOT BEEN USING THEM PT CONTINUES TO SMOKE 1 PPD REPORTEDLY, KU WAS CONSULTED AT SOME POINT, AND APPARENTLY PT IS NOT A CANDIDATE FOR TRANSPLANT OR TREATMENT OF HEPATITIS C PT QUIT DRINKING AND USING DRUGS (THC) 6 MONTHS AGO. PT HAS NOT ATTEMPTED TO FOLLOW UP WITH HIS AT ANY TIME THIS WEEK. PCP: [facility], DR. 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 HUNTLEY Allergies and Home Medications Allergies Coded Allergies: No Known Drug Allergies (Unverified , 11/12/16) Home Medications Furosemide 40 Mg Tablet, 40 MG PO DAILY, (Reported) Lactulose 10 Gm/15 Ml Solution, 10 GM PO 3-4 times daily, (Reported) Lorazepam 0.5 Mg Tablet, 0.5 MG PO Q6H, #10 Prescribed by: SARA HUTCHINSON on 03/14/172206 Prochlorperazine Maleate 10 Mg Tablet, 10 MG PO Q6H PRN for NAUSEA/VOMITING-1ST LINE, (Reported) Spironolactone 50 Mg Tablet, 50 MG PO DAILY, (Reported) Constitutional: see HPI, dizziness, fever, malaise, weakness, other (TREMORS) EENTM: other (DRY ORAL MUCOSA) Respiratory: see HPI, short of breath Cardiovascular: no symptoms reported, No chest pain, No edema, No palpitations , No syncope, No vascular heart diseas Gastrointestinal: No abdominal pain, diarrhea, hematemesis, loss of appetite, nausea, vomiting Genitourinary: no symptoms reported Musculoskeletal: no symptoms reported Skin: no symptoms reported Psychiatric/Neurological: See HPI, Denies Headache, Denies Numbness, Denies Paresthesia Hematologic/Lymphatic: No Symptoms Reported Immunological/Allergic: no symptoms reported Past Vwalrvi-Obtpto-Ibeeob Hx Patient Social History Alcohol Use: Past History (HISTORY OF ABUSE, USED TO DRINK TOO MUCH TO COUNT, THEN WAS DOWN TO A PINT OF WHISKEY BEFORE HE STOPPED DRINKING 09/21/16-) Recreational Drug Use: Yes (THC) Smoking Status: Current Everyday Smoker (1 PPD) Type Used: Cigarettes 2nd Hand Smoke Exposure: Yes Recent Foreign Travel: No Contact w/Someone Who Travel: No Recent Infectious Disease Expo: No Recent Hopitalizations: Yes (PARACENTESIS) Immunizations Up To Date Date of Pneumonia Vaccine: Sep 22, 2016 Date of Influenza Vaccine: Sep 22, 2016 Seasonal Allergies Seasonal Allergies: No Surgeries HX Surgeries: Yes (LEFT ANKLE FX/ORIF; PERITONEAL TAP--INDWELLING) Surgeries: Orthopedic Respiratory Hx Respiratory Disorders: Yes (SOB) Respiratory Disorders: COPD Cardiovascular Hx Cardiac Disorders: Yes ([place] 2007-NO CARDIAC CATH OR INTERVENTION) Cardiac Disorders: Chronic Edema/Swelling, Coronary Artery Disease, Heart Attack, Hypertension Neurological Hx Neurological Disorders: No Reproductive System Hx Reproductive Disorders: No Sexually Transmitted Disease: No HIV/AIDS: No Genitourinary Hx Genitourinary Disorders: Yes Genitourinary Disorders: Renal Failure Gastrointestinal Hx Gastrointestinal Disorders: Yes (HEPATITIS C--NO TREATMENT; END STAGE LIVER FAILURE) Gastrointestinal Disorders: Abdominal Hernia, Liver Disease/Jaundice, Hepatitis , Cirrhosis Musculoskeletal Hx Musculoskeletal Disorders: Yes Musculoskeletal Disorders: Arthritis, Chronic Back Pain, Fractures Endocrine Hx Endocrine Disorders: No HEENT HX ENT Disorders: Yes (READING GLASSES) Loss of Vision: Bilateral Hearing Impairment: Denies Cancer Hx Cancer: No Psychosocial Hx Psychiatric Problems: No Behavioral Health Disorders: Anxiety Integumentary HX Skin/Integumentary Disorder: No Blood Transfusions Hx Blood Disorders: Yes (ANEMIA) Adverse Reaction to a Blood Tr: No Family Medical History Significant Family History: Heart Disease, Cancer Physical Exam Vital Signs Vital Sign - Last 12Hours 03/14/17 19:43 Temp 98.2 Pulse 80 Resp 18 B/P (MAP) 104/47 Pulse Ox 100 O2 Delivery Room Air Capillary Refill : Less Than 3 Seconds General Appearance: Chronically ill, Other (LETHARGIC, SPEECH SLOW BUT CLEAR. ) HEENT: No Photophobia, Scleral Icterus (L), Scleral Icterus (R), Other (VERY DRY ORAL MUCOSA) Neck: Full Range of Motion, Normal Inspection, Non Tender, Supple, No JVD Respiratory: Normal Breath Sounds, No Accessory Muscle Use, No Respiratory Distress Cardiovascular: Regular Rate, Rhythm, No Gallop, No JVD, Systolic Murmur (2/6) Gastrointestinal: Normal Bowel Sounds, No Pulsatile Mass, Non Tender, Soft, Other (PERIUMBILICAL HERNIA-SOFT, NON-TENDER, NON-DISTENDED. ABDOMEN IS SOFT AND FLAT AND NON-TENDER, INDWELLING PERITONEAL TAP IN PLACE TO RIGHT MID ABDOMEN. NO SIGNS OF INFECTION AND NON-TENDER. ) Back: No CVA Tenderness Extremity: No Calf Tenderness, No Pedal Edema, Other (PULSES FAINT IN FEET. ) Neurologic/Psychiatric: Oriented x3, No Motor/Sensory Deficits, automobile glass technician II-XII Norm as Tested, Other (LETHARGIC, ) Skin: Jaundice, Pallor, No Rash, Other (DECREASED TURGOR, BUT NOT TENTING) Focused Exam Lactic Acid Level Progress/Results/Core Measures Results/Orders Lab Results Laboratory Tests Test 03/14/17 19:47 6/24/17 20:10 Range/Units White Blood Count 6.9 4.3-11.0 10^3/uL Red Blood Count 3.86 L 4.35-5.85 10^6/uL Hemoglobin 12.8 L 13.3-17.7 G/DL Hematocrit 34 L 40-54 % Mean Corpuscular Volume 88 80-99 FL Mean Corpuscular Hemoglobin 33 25-34 PG Mean Corpuscular Hemoglobin Concent 38 H 32-36 G/DL Red Cell Distribution Width 14.4 10.0-14.5 % Platelet Count 79 L 130-400 10^3/uL Mean Platelet Volume 9.8 7.4-10.4 FL Neutrophils (%) (Auto) 65 42-75 % Lymphocytes (%) (Auto) 14 12-44 % Monocytes (%) (Auto) 18 H 0-12 % Eosinophils (%) (Auto) 3 0-10 % Basophils (%) (Auto) 0 0-10 % Neutrophils # (Auto) 4.5 1.8-7.8 X 10^3 Lymphocytes # (Auto) 1.0 1.0-4.0 X 10^3 Monocytes # (Auto) 1.2 H 0.0-1.0 X 10^3 Eosinophils # (Auto) 0.2 0.0-0.3 10^3/uL Basophils # (Auto) 0.0 0.0-0.1 10^3/uL Prothrombin Time 18.5 H 12.2-14.7 SEC INR Comment 1.6 H 0.8-1.4 Activated Partial Thromboplast Time 33 24-35 SEC Sodium Level 114 *L 135-145 MMOL/L Potassium Level 6.9 *H 3.6-5.0 MMOL/L Chloride Level 90 L 98-107 MMOL/L Carbon Dioxide Level 17 L 21-32 MMOL/L Anion Gap 7 5-14 MMOL/L Blood Urea Nitrogen 61 H 7-18 MG/DL Creatinine 2.18 H 0.60-1.30 MG/DL Estimat Glomerular Filtration Rate 31 BUN/Creatinine Ratio 28 H 0-20 Glucose Level 123 H 70-105 MG/DL Calcium Level 8.6 8.5-10.1 MG/DL Total Bilirubin 2.6 H 0.1-1.0 MG/DL Aspartate Amino Transf (AST/SGOT) 61 H 5-34 U/L Alanine Aminotransferase (ALT/SGPT) 36 0-55 U/L Alkaline Phosphatase 87 40-136 U/L Total Creatine Kinase 61 30-200 U/L Creatine Kinase MB 3.6 <6.6 NG/ML Troponin I < 0.30 <0.30 NG/ML B-Type Natriuretic Peptide 32.8 <100.0 PG/ML Total Protein 6.8 6.4-8.2 GM/DL Albumin 1.9 L 3.2-4.5 GM/DL Lactic Acid Level 1.47 0.50-2.00 MMOL/L Magnesium Level 1.6 L 1.8-2.4 MG/DL Ammonia 42 H 11-32 UMOL/L Amylase Level 75 25-125 U/L Lipase 84 H 8-78 U/L My Orders Orders - SARA HUTCHINSON DO Cbc With Automated Diff (03/14/17 19:50) Comprehensive Metabolic Panel (03/14/17 19:50) Creatine Kinase (03/14/17 19:50) Creatine Kinase Mb (03/14/17 19:50) Partial Thromboplastin Time (03/14/17 19:50) Protime With Inr (03/14/17 19:50) Troponin I (03/14/17 19:50) Chest 1 View, Ap/Pa Only (03/14/17 19:50) O2 (03/14/17 19:50) Ekg Tracing (03/14/17 19:50) BNP (03/14/17 19:50) Monitor-Rhythm Ecg Trace Only (03/14/17 19:50) Saline Lock/Iv-Start (03/14/17 19:50) Orthostatic Vital Signs (03/14/17 19:50) Saline Lock/Iv-Start (03/14/17 19:50) Ns Iv 1000 Ml (Sodium Chloride 0.9%) (03/14/17 19:50) Ammonia (03/14/17 20:06) Amylase (03/14/17 20:06) Lipase (03/14/17 20:06) Magnesium (03/14/17 20:06) Lactic Acid Analyzer (03/14/17 20:06) Blood Culture (03/14/17 20:18) Rx-Lorazepam (Rx-Ativan) (03/14/17 22:02) Medications Given in ED Current Medications Medications Dose Ordered Sig/Jordan Route Start Time Stop Time Status Last Admin Dose Admin Sodium Chloride 1,000 ml @ 0 mls/hr Q0M ONCE IV 03/14/17 19:50 03/14/17 19:51 DC 03/14/17 19:55 0 MLS/HR Vital Signs/I&O Vital Sign - Last 12Hours 03/14/17 03/14/17 03/14/17 03/14/17 19:43 19:58 20:25 22:30 Temp 98.2 98.2 Pulse 80 80 79 94 95 Resp 18 18 B/P (MAP) 104/47 Pulse Ox 100 100 97 O2 Delivery Room Air Room Air Room Air Intake and Output 03/15/17 00:00 Intake Total 1000 ml Balance 1000 ml Blood Pressure Mean: 66 Progress Note : Progress Note HOSPICE NURSE ARRIVED LATER LENGTHY DISCUSSION WITH PT, THE 2 FEMALES IN THE ROOM, AND HOSPICE NURSE EXPLAINED THE OMINOUS SITUATION TO ALL, AND THAT THIS WAS LIKELY THE BEGINNING OF THE DYING PROCESS, WHICH IS WHY HOSPICE CARE HAD BEEN ARRANGED A COUPLE OF MONTHS AGO. OFFERED TO ADMIT PT HERE FOR IV FLUIDS, ELECTROLYTE CORRECTION, ETC. BUT THAT HOSPICE WOULD BE DISCONTINUED IF HE CHOSE THIS OPTION, AND THAT THE LIKELIHOOD THAT HE WOULD BE BACK HERE IN THE SAME/SIMILAR SITUATION IN A SHORT PERIOD OF TIME WAS HIGH. PT STATES HE "JUST WANTS A PILL TO GIVE HIM SOME ENERGY"--EXPLAINED THAT THIS WAS NOT POSSIBLE WITH HIS GRAVE CONDITION PT OPTS TO GO BACK HOME ON HOSPICE. WILL HOLD HIS LASIX AND SPIRONOLACTONE TOMORROW ( HAS ALREADY HAD HIS MEDICATIONS TODAY) AND HOSPICE NURSE WILL CONTACT DR. MAYBERRY ON THURSDAY FOR FURTHER ORDERS. WILL GIVE RX FOR ATIVAN FOR ANXIETY AND TREMORS. Diagnostic Imaging Comments CXR--NO ACUTE PROCESS, PER RADIOLOGIST REPORT @ 2019 Reviewed: Reviewed by Me Departure Impression Impression: Primary Impression: End stage liver disease Additional Impressions: DEHYDRATION WITH ACUTE RENAL FAILURE Hyperkalemia Hyponatremia Hypomagnesemia Disposition: HOME, SELF-CARE (ON HOSPICE) Condition: Stable/Unchanged Departure-Patient Inst. Referrals: DEBORAH MAYBERRY MD, JULIE A MD (PCP/Family) Primary Care Physician Patient Instructions: Cirrhosis (DC), Dehydration, Adult (DC), Hepatic Encephalopathy (DC), Hepatitis C (DC), Hyperkalemia (DC), Hyponatremia (DC), Kidney Failure (DC) Add. Discharge Instructions: HOLD ALL MEDICATIONS EXCEPT LACTULOSE AND ALBUTEROL NEBULIZER--UNTIL YOU FOLLOW UP WITH DR MAYBERRY ON THURSDAY CONTINUE HOSPICE CARE All discharge instructions reviewed with patient and/or family. Voiced understanding. Scripts Lorazepam (Ativan) 0.5 Mg Tablet 0.5 MG PO Q6H for Tremors, #10 TAB Prov: SARA HUTCHINSON DO 03/14/17 SARA HUTCHINSON DO Mar 14, 2017 19:50
[2017-03-14] MEDS ORDERED: LACT10SO PO (19:51)
[2017-03-14] MEDS ORDERED: PROC10TA PO (19:51)
[2017-03-14] MEDS ORDERED: SPIR50TA2 PO (19:51)
[2017-03-14] MEDS ORDERED: FURO40TA4 PO (19:51)
[2017-03-14 19:56] LABS: BASOPHILS % (AUTO) 0 % (0-10); EOSINOPHILS # (AUTO) 0.2 10^3/uL (0.0-0.3); EOSINOPHILS % (AUTO) 3 % (0-10); LYMPHOCYTES % (AUTO) 14 % (12-44); MEAN CORPUSCULAR HEMOGLOBIN 33 PG (25-34); MEAN CORPUSCULAR HGB CONC 38 G/DL (32-36); MEAN CORPUSCULAR VOLUME 88 FL (80-99); MEAN PLATELET VOLUME 9.8 FL (7.4-10.4); MONOCYTES # (AUTO) 1.2 X 10^3 (0.0-1.0); MONOCYTES % (AUTO) 18 % (0-12); NEUTROPHILS # (AUTO) 4.5 X 10^3 (1.8-7.8); NEUTROPHILS % (AUTO) 65 % (42-75); PLATELET COUNT 79 10^3/uL (130-400); RED BLOOD COUNT 3.86 10^6/uL (4.35-5.85); RED CELL DISTRIBUTION WIDTH 14.4 % (10.0-14.5); WHITE BLOOD COUNT 6.9 10^3/uL (4.3-11.0)
[2017-03-14 20:04] LABS: INR 1.6 (0.8-1.4); PROTHROMBIN TIME PATIENT 18.5 SEC (12.2-14.7)
[2017-03-14 20:15] LABS: ALANINE AMINOTRANSFERASE 36 U/L (0-55); ALBUMIN 1.9 GM/DL (3.2-4.5); ANION GAP 7 MMOL/L (5-14); ASPARTATE AMINO TRANSFERASE 61 U/L (5-34); BILIRUBIN,TOTAL 2.6 MG/DL (0.1-1.0); BLOOD UREA NITROGEN 61 MG/DL (7-18); BUN/CREATININE RATIO 28 (0-20); CALCIUM 8.6 MG/DL (8.5-10.1); CARBON DIOXIDE 17 MMOL/L (21-32); CHLORIDE 90 MMOL/L (98-107); CREATINE KINASE 61 U/L (30-200); CREATININE SERUM 2.18 MG/DL (0.60-1.30); GFR ESTIMATED 31; GLUCOSE 123 MG/DL (70-105); HEMOLYSIS 10 (-100-29); ICTERUS 2.5 (-100-1.9); LIPEMIA 0 (-100-49); TOTAL PROTEIN 6.8 GM/DL (6.4-8.2)
--- NOTE | 2017-03-14 20:18 | Diagnostic Imaging Report ---
CHEST 1 VIEW, AP/PA ONLY Indication: Weakness, low blood pressure. Generalized pain. Comparison: 10/29/2016 Findings: No focal airspace disease in the visualized lungs. Please note that the posterior lower lobes are poorly evaluated by portable radiography. No pleural effusion or pneumothorax. Normal cardiomediastinal silhouette. Impression: No acute cardiopulmonary process by portable radiography. Dictated by: Dictated on workstation # [id number]
[2017-03-14 20:21] LABS: POTASSIUM 6.9 MMOL/L (3.6-5.0); SODIUM 114 MMOL/L (135-145)
[2017-03-14 20:22] LABS: TROPONIN I < 0.30 NG/ML (<0.30)
[2017-03-14 20:48] LABS: MAGNESIUM 1.6 MG/DL (1.8-2.4)
[2017-03-14] MEDS ORDERED: RX-LORAZEPAM (ATIVAN) 0.5 MG TAB PPK#4 PO STA (22:02)
[2017-03-14] MEDS ORDERED: LORA-404 PO (22:07)
[2017-03-14 22:30] VITALS: BP 105/51
--- OUTSIDE RECORDS SUMMARY | 2017-03-16 17:29 | XMS REPORT ---
Author Author KIMBERLY WELSH Organization [employer] Address Unknown Phone Unavailable Care Team Providers Care Microbial Specialist Name Role Phone KIMBERLY WELSH CP Unavailable Allergies No Known Allergies Problems Problem Type Condition Code Onset Dates Condition Status Problem Acute hypokalemia E87.6 Active Problem Hypertension I10 Active Problem Gynecomastia, male N62 Active Problem Need for prophylactic vaccination and inoculation, Influenza V04.81 Active Medications No Known Medications Results No Known Results Summary Purpose [employer] Submission
--- OUTSIDE RECORDS SUMMARY | 2017-03-16 17:29 | XMS REPORT ---
Author DEBORAH Dickson [facility] [employer] Address Unknown Phone Unavailable Care Team Providers Care Automobile Carpets Molder Name Role Phone DEBORAH MAYBERRY CP Unavailable Allergies, Adverse Reactions, Alerts Substance Reaction Event Type N.K.D.A. Info Not Available Non Drug Allergy Problems Problem Type Condition Code Onset Dates Condition Status Problem Need for prophylactic vaccination and inoculation, Influenza V04.81 Active Assessment Bronchitis J40 Active Problem Hypertension I10 Active Assessment Hypertension I10 Active Medications Medication Code System Code Instructions Start Date End Date Status Dosage Atenolol [facility] [address]-35 50 MG Orally Once a day 1 tablet Aspirin [facility] [address]-67 81 mg February 21, 2014 take 1 tablet (81 mg ) by oral route once daily Doxycycline Hyclate [facility] [address]-77 100 MG Orally every 12 hrs Jun 25, 2015 Jul 02, 2015 1 capsule Procedures Procedure Coding System Code Date Office Visit, Est Pt., Level 3 CPT-4 77060 Jun 25, 2015 Vital Signs Date/Time: Jun 25, 2015 Temperature 98.0 F Weight 230 lbs Height 72 in BMI 31.19 Index Blood Pressure Diastolic 64 mmHg Blood Pressure Systolic 130 mmHg Cardiac Monitoring Heart Rate 70 bpm Results No Known Results Summary Purpose [employer] Submission
--- OUTSIDE RECORDS SUMMARY | 2017-03-16 17:29 | XMS REPORT ---
Author Author KIMBERLY WELSH [facility] Address [address] [place] [address] Care Team Providers Care Welfare Visitor Name Role Phone KIMBERLY WELSH Unavailable PROBLEMS Type Condition ICD9-CM Code DXT85-AM Code Onset Dates Condition Status SNOMED Code Problem Need for prophylactic vaccination and inoculation, Influenza V04.81 Active 730381362 Problem Major depressive disorder, single episode, unspecified F32.9 Active 98575713 Problem Alcohol abuse F10.10 Active 22041712 Problem Acute hypokalemia E87.6 Active 99835585 Problem Hypertension I10 Active 24573445 Problem Chronic hepatitis C without hepatic coma B18.2 Active 407228422 Problem Gynecomastia, male N62 Active 4448087 ALLERGIES Unknown Allergies SOCIAL HISTORY No smoking Hx information available PLAN OF CARE VITAL SIGNS MEDICATIONS Medication Instructions Dosage Frequency Start Date End Date Duration Status Zoloft 50 mg Orally Once a day 0.5 tablet daily X 4 days then 1 tablet 24h Jul, 30 days Active RESULTS No Results PROCEDURES No Known procedures IMMUNIZATIONS No Known Immunizations
--- OUTSIDE RECORDS SUMMARY | 2017-03-16 17:29 | XMS REPORT ---
Author Author IKMBERLY WELSH Organization [employer] Address Unknown Phone Unavailable Care Team Providers Care Sheltered Workshop Executive Director Name Role Phone KIMBERLY WELSH CP Unavailable Allergies No Known Allergies Problems Problem Type Condition Code Onset Dates Condition Status Problem Acute hypokalemia E87.6 Active Problem Hypertension I10 Active Problem Gynecomastia, male N62 Active Problem Need for prophylactic vaccination and inoculation, Influenza V04.81 Active Medications No Known Medications Results No Known Results Summary Purpose [employer] Submission
--- OUTSIDE RECORDS SUMMARY | 2017-03-16 17:29 | XMS REPORT ---
Author Author KIMBERLY WELSH [facility] Address [address] [place] [address] Care Team Providers Care Waiver Analyst Name Role Phone KIMBERLY WELSH Unavailable PROBLEMS Type Condition ICD9-CM Code XPW73-PM Code Onset Dates Condition Status SNOMED Code Assessment Other fatigue R53.83 Jul, Active 45674220 Problem Need for prophylactic vaccination and inoculation, Influenza V04.81 Active 789494171 Assessment Major depressive disorder, single episode, unspecified F32.9 Jul, Active 82443355 Assessment Hyperglycemia R73.9 Jul, Active 42962374 Problem Major depressive disorder, single episode, unspecified F32.9 Active 04400583 Problem Alcohol abuse F10.10 Active 33272903 Problem Acute hypokalemia E87.6 Active 80552609 Problem Hypertension I10 Active 01326206 Problem Chronic hepatitis C without hepatic coma B18.2 Active 462179076 Problem Gynecomastia, male N62 Active 4018291 ALLERGIES Substance Reaction Event Type Date Status N.K.D.A. Unknown Non Drug Allergy Jul, Unknown SOCIAL HISTORY No smoking Hx information available PLAN OF CARE VITAL SIGNS Height 72 in 2016-08-19 Weight 236.3 lbs 2016-08-19 Heart Rate 88 bpm 2016-08-19 Respiratory Rate 18 2016-08-19 BMI 32.04 kg/m2 2016-08-19 Blood pressure systolic 144 mmHg 2016-08-19 Blood pressure diastolic 72 mmHg 2016-08-19 MEDICATIONS Medication Instructions Dosage Frequency Start Date End Date Duration Status Vitamin D3 03704 UNIT Orally Once a day OTC as directed Jul, Active Atenolol-Chlorthalidone 50-25 MG Orally Once a day 1 tablet 24h 90 Active Zoloft 50 mg Orally Once a day 25 units daily X 4 days then 1 tab 24h Jul, Active RESULTS No Results PROCEDURES Procedure Date Ordered Related Diagnosis Body Site ASSAY THYROID STIM HORMONE Aug 19, 2016 COMPREHEN METABOLIC PANEL Aug 19, 2016 Office Visit, Est Pt., Level 3 Aug 19, 2016 COMPLETE CBC W/AUTO DIFF WBC Aug 19, 2016 VENIPUNCT, ROUTINE* Aug 19, 2016 IMMUNIZATIONS No Known Immunizations
--- OUTSIDE RECORDS SUMMARY | 2017-03-16 17:30 | XMS REPORT ---
Author Author KIMBERLY WELSH [facility] eClinicalWorks Address Unknown Phone Unavailable Care Team Providers Care Shower Screen Installer Name Role Phone KIMBERLY WELSH CP Unavailable Allergies No Known Allergies Problems Problem Type Condition Code Onset Dates Condition Status Problem Acute hypokalemia E87.6 Active Problem Hypertension I10 Active Problem Gynecomastia, male N62 Active Problem Need for prophylactic vaccination and inoculation, Influenza V04.81 Active Assessment Gynecomastia, male N62 Active Medications No Known Medications Results No Known Results Summary Purpose eClinicalWorks Submission
--- OUTSIDE RECORDS SUMMARY | 2017-03-16 17:30 | XMS REPORT ---
Author Author KIMBERLY WELSH [facility] eClinicalWorks Address Unknown Phone Unavailable Care Team Providers Care Media Planner Name Role Phone KIMBERLY WELSH CP Unavailable Allergies No Known Allergies Problems Problem Type Condition Code Onset Dates Condition Status Problem Acute hypokalemia E87.6 Active Problem Hypertension I10 Active Problem Gynecomastia, male N62 Active Problem Need for prophylactic vaccination and inoculation, Influenza V04.81 Active Medications No Known Medications Results No Known Results Summary Purpose eClinicalWorks Submission
--- OUTSIDE RECORDS SUMMARY | 2017-03-16 17:30 | XMS REPORT ---
Author Author KIMBERLY WELSH [facility] eClinicalWorks Address Unknown Phone Unavailable Care Team Providers Care Die Holder Name Role Phone KIMBERLY WELSH CP Unavailable Allergies, Adverse Reactions, Alerts Substance Reaction Event Type N.K.D.A. Info Not Available Non Drug Allergy Problems Problem Type Condition Code Onset Dates Condition Status Problem Acute hypokalemia E87.6 Active Problem Hypertension I10 Active Problem Gynecomastia, male N62 Active Problem Need for prophylactic vaccination and inoculation, Influenza V04.81 Active Assessment Gynecomastia, male N62 Active Medications Medication Code System Code Instructions Start Date End Date Status Dosage Aspirin [facility] [address]-64 81 mg February 21, 2014 take 1 tablet (81 mg ) by oral route once daily Atenolol-Chlorthalidone [facility] [address]-53 50-25 MG Orally Once a day 1 tablet Procedures Procedure Coding System Code Date Office Visit, Est Pt., Level 3 CPT-4 60849 Jun 30, 2016 Vital Signs Date/Time: Jun 30, 2016 Cardiac Monitoring Heart Rate 78 bpm Weight 228 lbs Height 72 in BMI 30.92 Index Blood Pressure Diastolic 82 mmHg Blood Pressure Systolic 148 mmHg Results Name Result Date Reference Range Unit Abnormality Flag Ultrasound : Breast, Left Summary Purpose eClinicalWorks Submission
--- OUTSIDE RECORDS SUMMARY | 2017-03-16 17:30 | XMS REPORT | Continuity of Care Document ---
Author Author [facility] Address Unknown Phone Unavailable Allergies Active Description Code Type Severity Reaction Onset Reported/Identified Relationship to Patient Clinical Status Yes No Known Drug Allergies [id number] Drug Allergy Unknown N/ A 11/12/2016 Medications Problems Date Dx Coded Attending Type Code Diagnosis Diagnosed By 07/01/2010 401.9 HYPERTENSION, UNSPECIFIED ESSENTIAL 07/01/2010 724.5 BACKACHE UNSPECIFIED 07/01/2010 SHAWANDA STEVENSON, DEBORAH 401.9 HYPERTENSION, UNSPECIFIED ESSENTIAL 07/01/2010 SHAWANDA STEVENSON, DEBORAH 724.5 BACKACHE UNSPECIFIED 07/01/2010 SHAWANDA STEVENSON, DEBORAH 401.9 HYPERTENSION, UNSPECIFIED ESSENTIAL 07/01/2010 SHAWANDA STEVENSON, DEBORAH 724.5 BACKACHE UNSPECIFIED 07/01/2010 ROZ HERR DDS 401.9 HYPERTENSION, UNSPECIFIED ESSENTIAL 07/01/2010 ROZ HERR DDS 724.5 BACKACHE UNSPECIFIED 07/01/2010 SHAWANDA STEVENSON, DEBORAH 401.9 HYPERTENSION, UNSPECIFIED ESSENTIAL 07/01/2010 SHAWANDA STEVENSON, DEBORAH 724.5 BACKACHE UNSPECIFIED 07/01/2010 SHAWANDA STEVENSON, DEBORAH 401.9 HYPERTENSION, UNSPECIFIED ESSENTIAL 07/01/2010 SHAWANDA STEVENSON, DEBORAH 724.5 BACKACHE UNSPECIFIED 07/01/2010 SHAWANDA STEVENSON, DEBORAH 401.9 HYPERTENSION, UNSPECIFIED ESSENTIAL 07/01/2010 DEBORAH MAYBERRY MD 724.5 BACKACHE UNSPECIFIED 06/30/2011 070.54 CHRONIC HEPATITIS C WITHOUT HEPATIC COMA 06/30/2011 DEBORAH MAYBERRY MD 070.54 CHRONIC HEPATITIS C WITHOUT HEPATIC COMA 06/30/2011 DEBORAH MAYBERRY MD 070.54 CHRONIC HEPATITIS C WITHOUT HEPATIC COMA 06/30/2011 ROZ HERR DDS 070.54 CHRONIC HEPATITIS C WITHOUT HEPATIC COMA 06/30/2011 DEBORAH MAYBERRY MD 070.54 CHRONIC HEPATITIS C WITHOUT HEPATIC COMA 06/30/2011 DEBORAH MAYBERRY MD 070.54 CHRONIC HEPATITIS C WITHOUT HEPATIC COMA 06/30/2011 SHAWANDA STEVENSON, DEBORAH 070.54 CHRONIC HEPATITIS C WITHOUT HEPATIC COMA 07/08/2013 SHAWADNA STEVENSON, DEBORAH V04.81 FLU SHOT 07/08/2013 WHITE DDS, ROZ Augusto V04.81 FLU SHOT 07/08/2013 SHAWANDA STEVENSON, DEBORAH V04.81 FLU SHOT 07/08/2013 SHAWANDA STEVENSON, DEBORAH V04.81 FLU SHOT 07/08/2013 SHAWANDA STEVENSON, DEBORAH V04.81 FLU SHOT 09/11/2014 SHAWANDA STEVENSON, DEBORAH 466.0 ACUTE BRONCHITIS 09/11/2014 SHAWANDA STEVENSON, DEBORAH 466.0 ACUTE BRONCHITIS 12/29/2014 SHAWANDA STEVENSON, DEBORAH 786.09 RESPIRATORY ABNORMALITY OTHER 02/26/2016 LYNNE LYNCH MD Ot I10 ESSENTIAL (PRIMARY) HYPERTENSION 02/26/2016 LYNNE LYNCH MD Ot L55.0 SUNBURN OF FIRST DEGREE 02/26/2016 LYNNE LYNCH MD Ot Z79.899 OTHER SHELTER (CURRENT) DRUG THERAPY 02/27/2016 LYNNE LYNCH MD Ot I10 ESSENTIAL (PRIMARY) HYPERTENSION 02/27/2016 LYNNE LYNCH MD Ot L55.0 SUNBURN OF FIRST DEGREE 02/27/2016 LYNNE LYNCH MD, Ot Z79.899 OTHER SHELTER (CURRENT) DRUG THERAPY 05/08/2016 KIMBERLY WELSHP Ot N63 UNSPECIFIED LUMP IN BREAST 07/15/2016 KIMBERLY WELSHP Ot N63 UNSPECIFIED LUMP IN BREAST 07/16/2016 KIMBERLY WELSH STRADDLE BUG Ot N62 HYPERTROPHY OF BREAST 07/17/2016 KIMBERLY WELSH STRADDLE BUG Ot N62 HYPERTROPHY OF BREAST 07/30/2016 KIMBERLY WELSHP Ot N63 UNSPECIFIED LUMP IN BREAST 07/30/2016 KIMBERLY WELSH STRADDLE BUG Ot N62 HYPERTROPHY OF BREAST 08/06/2016 DEBORAH MAYBERRY MD Ot N60.92 UNSPECIFIED BENIGN MAMMARY DYSPLASIA OF 08/06/2016 DEBORAH MAYBERRY MD Ot N62 HYPERTROPHY OF BREAST 08/20/2016 DEBORAH MAYBERRY MD Ot N60.92 UNSPECIFIED BENIGN MAMMARY DYSPLASIA OF 08/20/2016 DEBORAH MAYBERRY MD Ot N62 HYPERTROPHY OF BREAST 09/01/2016 KIMBERLY WELSHP Ot N63 UNSPECIFIED LUMP IN BREAST 09/01/2016 KIMBERLY WELSH STRADDLE BUG Ot N62 HYPERTROPHY OF BREAST 09/01/2016 DEBORAH MAYBERRY MD Ot N60.92 UNSPECIFIED BENIGN MAMMARY DYSPLASIA OF 09/01/2016 DEBORAH MAYBERRY MD Ot N62 HYPERTROPHY OF BREAST 09/02/2016 KIMBERLY WELSH STRADDLE BUG Ot B18.2 CHRONIC VIRAL HEPATITIS C 09/07/2016 KIMBERLY WELSH STRADDLE BUG Ot B18.2 CHRONIC VIRAL HEPATITIS C 09/11/2016 KIMBERLY WELSH STRADDLE BUG Ot N63 UNSPECIFIED LUMP IN BREAST 09/30/2016 KIMBERLY WELSH STRADDLE BUG Ot N63 UNSPECIFIED LUMP IN BREAST 09/30/2016 KIMBERLY WELSH STRADDLE BUG Ot N62 HYPERTROPHY OF BREAST 09/30/2016 DEBORAH MAYBERRY MD Ot N60.92 UNSPECIFIED BENIGN MAMMARY DYSPLASIA OF 09/30/2016 DEBORAH MAYBERRY MD Ot N62 HYPERTROPHY OF BREAST 09/30/2016 KIMBERLY WELSH STRADDLE BUG Ot B18.2 CHRONIC VIRAL HEPATITIS C 10/29/2016 KIMBERLY WELSH STRADDLE BUG Ot N63 UNSPECIFIED LUMP IN BREAST 10/29/2016 KIMBERLY WELSH STRADDLE BUG Ot N62 HYPERTROPHY OF BREAST 10/29/2016 DEBORAH MAYBERRY MD Ot N60.92 UNSPECIFIED BENIGN MAMMARY DYSPLASIA OF 10/29/2016 DEBORAH MAYBERRY MD Ot N62 HYPERTROPHY OF BREAST 10/29/2016 KIMBERLY WELSH STRADDLE BUG Ot B18.2 CHRONIC VIRAL HEPATITIS C 10/29/2016 KIMBERLY WELSH STRADDLE BUG Ot N63 UNSPECIFIED LUMP IN BREAST 10/29/2016 KIMBERLY WELSH STRADDLE BUG Ot N62 HYPERTROPHY OF BREAST 10/29/2016 DEBORAH MAYBERRY MD Ot N60.92 UNSPECIFIED BENIGN MAMMARY DYSPLASIA OF 10/29/2016 DEBORAH MAYBERRY MD Ot N62 HYPERTROPHY OF BREAST 10/29/2016 KIMBERLY WELSH STRADDLE BUG Ot B18.2 CHRONIC VIRAL HEPATITIS C 10/29/2016 KIMBERLY WELSH Ot N63 UNSPECIFIED LUMP IN BREAST 10/29/2016 KIMBERLY WELSH Ot N62 HYPERTROPHY OF BREAST 10/29/2016 DEBORAH MAYBERRY MD Ot N60.92 UNSPECIFIED BENIGN MAMMARY DYSPLASIA OF 10/29/2016 DEBORAH MAYBERRY MD Ot N62 HYPERTROPHY OF BREAST 10/29/2016 KIMBERLY WELSH Ot B18.2 CHRONIC VIRAL HEPATITIS C 10/29/2016 KIMBERLY WELSH Ot N63 UNSPECIFIED LUMP IN BREAST 10/29/2016 KIMBERLY WELSH Ot N62 HYPERTROPHY OF BREAST 10/29/2016 DEBORAH MAYBERRY MD Ot N60.92 UNSPECIFIED BENIGN MAMMARY DYSPLASIA OF 10/29/2016 DEBORAH MAYBERRY MD, Ot N62 HYPERTROPHY OF BREAST 10/29/2016 KIMBERLY WELSH Ot B18.2 CHRONIC VIRAL HEPATITIS C 10/30/2016 RAHUL THOMPSON DOI Ot B19.20 UNSPECIFIED VIRAL HEPATITIS C WITHOUT HE 10/30/2016 RAHUL THOMPSON DOI Ot D69.6 THROMBOCYTOPENIA, UNSPECIFIED 10/30/2016 JAY CABALLERO JACKELYN Ot E83.42 HYPOMAGNESEMIA 10/30/2016 RAHUL THOMPSON DOI Ot E87.6 HYPOKALEMIA 10/30/2016 RAHUL THOMPSON DOI Ot F10.20 ALCOHOL DEPENDENCE, UNCOMPLICATED 10/30/2016 JAY CABALLERO JACKELYN Ot F17.210 NICOTINE DEPENDENCE, CIGARETTES, UNCOMPL 10/30/2016 RAHUL THOMPSON DOI Ot I10 ESSENTIAL (PRIMARY) HYPERTENSION 10/30/2016 RAHUL THOMPSON DOI Ot J44.9 CHRONIC OBSTRUCTIVE PULMONARY DISEASE, U 10/30/2016 RAHUL THOMPSON DOI Ot K70.31 ALCOHOLIC CIRRHOSIS OF LIVER WITH ASCITE 10/30/2016 KIMBERLY WELSH Ot N63 UNSPECIFIED LUMP IN BREAST 10/30/2016 KIMBERLY WELSH Ot N62 HYPERTROPHY OF BREAST 10/30/2016 DEBORAH MAYBERRY MD Ot N60.92 UNSPECIFIED BENIGN MAMMARY DYSPLASIA OF 10/30/2016 DEBORAH MAYBERRY MD Ot N62 HYPERTROPHY OF BREAST 10/30/2016 ANITHA, KIMBERLY STRADDLE BUG Ot B18.2 CHRONIC VIRAL HEPATITIS C 11/10/2016 TANNA HUTCHINSON DOA K Ot K74.60 UNSPECIFIED CIRRHOSIS OF LIVER 11/10/2016 SARA HUTCHINSON DO K Ot Z53.21 PROC/TRTMT NOT CRD OUT D/T PT LV BEF SEE 11/12/2016 SARA HUTCHINSON DO K Ot K74.60 UNSPECIFIED CIRRHOSIS OF LIVER 11/12/2016 SARA HUTCHINSON DO K Ot Z53.21 PROC/TRTMT NOT CRD OUT D/T PT LV BEF SEE 11/12/2016 SARA HUTCHINSON DO K Ot K74.60 UNSPECIFIED CIRRHOSIS OF LIVER 11/12/2016 SARA HUTCHINSON DO K Ot Z53.21 PROC/TRTMT NOT CRD OUT D/T PT LV BEF SEE 11/12/2016 YUKO MALKA CABALLEROIC B Ot R18.8 OTHER ASCITES 11/12/2016 MARYSNOW DO JOSE DAVID B Ot Z01.812 ENCOUNTER FOR PREPROCEDURAL LABORATORY E 11/13/2016 MARYSNOW DO JOSE DAVID B Ot K72.90 HEPATIC FAILURE, UNSPECIFIED WITHOUT COM 11/13/2016 YUKO , JOSE DAVID B Ot K74.60 UNSPECIFIED CIRRHOSIS OF LIVER 11/13/2016 MARYSNOW DO JOSE DAVID B Ot R18.8 OTHER ASCITES 11/14/2016 MARYSNOW , JOSE DAVID B Ot K72.90 HEPATIC FAILURE, UNSPECIFIED WITHOUT COM 11/14/2016 YUKO CABALLERO, JOSE DAVID B Ot K74.60 UNSPECIFIED CIRRHOSIS OF LIVER 11/14/2016 MARYSNOW DO JOSE DAVID B Ot R18.8 OTHER ASCITES 11/18/2016 KIMBERLY WELSHP Ot N63 UNSPECIFIED LUMP IN BREAST 11/18/2016 KIMBERLY WELSHP Ot N62 HYPERTROPHY OF BREAST 11/18/2016 DEBORAH MAYBERRY MD Ot N60.92 UNSPECIFIED BENIGN MAMMARY DYSPLASIA OF 11/18/2016 DEBORAH MAYBERRY MD Ot N62 HYPERTROPHY OF BREAST 11/18/2016 KIMBERLY WELSHP Ot B18.2 CHRONIC VIRAL HEPATITIS C 11/18/2016 TANNA HUTCHINSON DOA K Ot K74.60 UNSPECIFIED CIRRHOSIS OF LIVER 11/18/2016 SARA HUTCHINSON DO K Ot Z53.21 PROC/TRTMT NOT CRD OUT D/T PT LV BEF SEE 11/18/2016 SARA HUTCHINSON DO K Ot K74.60 UNSPECIFIED CIRRHOSIS OF LIVER 11/18/2016 SARA HUTCHINSON DO K Ot Z53.21 PROC/TRTMT NOT CRD OUT D/T PT LV BEF SEE 11/21/2016 KIMBERLY WELSHP Ot N63 UNSPECIFIED LUMP IN BREAST 11/21/2016 KIMBERLY WELSHP Ot N62 HYPERTROPHY OF BREAST 11/21/2016 DEBORAH MAYBERRY MD Ot N60.92 UNSPECIFIED BENIGN MAMMARY DYSPLASIA OF 11/21/2016 DEBORAH MAYBERRY MD Ot N62 HYPERTROPHY OF BREAST 11/21/2016 KIMBERLY WELSH Ot B18.2 CHRONIC VIRAL HEPATITIS C 11/21/2016 JASPER CABALLERO SARA Polo Ot K74.60 UNSPECIFIED CIRRHOSIS OF LIVER 11/21/2016 JASPER CABALLERO SARA K Ot Z53.21 PROC/TRTMT NOT CRD OUT D/T PT LV BEF SEE 11/24/2016 KIMBERLY WELSHP Ot N62 HYPERTROPHY OF BREAST 11/28/2016 KIMBERLY WELSHP Ot N62 HYPERTROPHY OF BREAST 11/28/2016 KIMBERLY WELSH Ot N63 UNSPECIFIED LUMP IN BREAST 11/28/2016 KIMBERLY WELSH Ot N62 HYPERTROPHY OF BREAST 11/28/2016 DEBROAH MAYBERRY MD Ot N60.92 UNSPECIFIED BENIGN MAMMARY DYSPLASIA OF 11/28/2016 DEBORAH MAYBERRY MD Ot N62 HYPERTROPHY OF BREAST 11/28/2016 KIMBERLY WELSH Ot B18.2 CHRONIC VIRAL HEPATITIS C 11/28/2016 KIMBERLY WELSHP Ot N62 HYPERTROPHY OF BREAST 02/24/2017 KIMBERLY WELSH Ot N62 HYPERTROPHY OF BREAST Procedures Code Description [place] [address] ROUTINE VENIPUNCTURE 07/08/[id number] GFR CALC (RESULT ONLY) 07/08/2013 55028 CMP 07/08/2013 37217 ROUTINE VENIPUNCTURE 12/29/[id number] GFR CALC (RESULT ONLY) 12/29/2014 22918 CMP 12/29/2014 15701 CBC 12/29/2014 73636 BNP 12/29/2014 Results Test Result Range Complete blood count (CBC) with automated white blood cell (WBC) differential - 10/29/16 09:00 Blood leukocytes automated count (number/volume) 3.7 10*3/ uL 4.3-11.0 Blood erythrocytes automated count (number/volume) 3.51 10*6 /uL 4.35-5.85 Venous blood hemoglobin measurement (mass/volume) 11.4 g/dL 13.3-17.7 Blood hematocrit (volume fraction) 33 % 40-54 Automated erythrocyte mean corpuscular volume 93 [foz_us] 80-99 Automated erythrocyte mean corpuscular hemoglobin (mass per erythrocyte) 33 pg 25-34 Automated erythrocyte mean corpuscular hemoglobin concentration measurement ( mass/volume) 35 g/dL 32-36 Automated erythrocyte distribution width ratio 15.6 % 10.0-14.5 Automated blood platelet count (count/volume) 44 10*3/uL 130-400 Automated blood platelet mean volume measurement 9.9 [foz_us ] 7.4-10.4 Automated blood neutrophils/100 leukocytes 56 % 42-75 Automated blood lymphocytes/100 leukocytes 27 % 12-44 Blood monocytes/100 leukocytes 14 % 0-12 Automated blood eosinophils/100 leukocytes 2 % 0-10 Automated blood basophils/100 leukocytes 1 % 0-10 Blood neutrophils automated count (number/volume) 2.1 10*3 1.8-7.8 Blood lymphocytes automated count (number/volume) 1.0 10*3 1.0-4.0 Blood monocytes automated count (number/volume) 0.5 10*3 0.0-1.0 Automated eosinophil count 0.1 10*3/uL 0.0-0.3 Automated blood basophil count (count/volume) 0.0 10*3/uL 0.0-0.1 PT panel in platelet poor plasma by coagulation assay - 10/29/16 09:00 Prothrombin time (PT) in platelet poor plasma by coagulation assay 19.5 s 12.2-14.7 INR in platelet poor plasma or blood by coagulation assay 1.7 0.8-1.4 Activated partial thromboplastin time (aPTT) in platelet poor plasma bycoagulation assay - 10/29/16 09:00 Activated partial thromboplastin time (aPTT) in platelet poor plasma bycoagulation assay 34 s 24-35 Ammonia - 10/29/16 09:00 Ammonia 49 umol/L 11-32 Comprehensive metabolic panel - 10/29/16 09:00 Serum or plasma sodium measurement (moles/volume) 137 mmol/ L 135-145 Serum or plasma potassium measurement (moles/volume) 2.4 mmol/L 3.6-5.0 Serum or plasma chloride measurement (moles/volume) 94 mmol/ L 98-107 Carbon dioxide 31 mmol/L 21-32 Serum or plasma anion gap determination (moles/volume) 12 mmol/L 5-14 Serum or plasma urea nitrogen measurement (mass/volume) 23 mg/dL 7-18 Serum or plasma creatinine measurement (mass/volume) 0.98 mg /dL 0.60-1.30 Serum or plasma urea nitrogen/creatinine mass ratio 23 NRG Serum or plasma creatinine measurement with calculation of estimated glomerular filtration rate > NRG Serum or plasma glucose measurement (mass/volume) 116 mg/dL 70-105 Serum or plasma calcium measurement (mass/volume) 8.2 mg/dL 8.5-10.1 Serum or plasma total bilirubin measurement (mass/volume) 3.9 mg/dL 0.1-1.0 Serum or plasma alkaline phosphatase measurement (enzymatic activity/volume) 68 U/L 40-136 Serum or plasma aspartate aminotransferase measurement (enzymatic activity/ volume) 61 U/L 5-34 Serum or plasma alanine aminotransferase measurement (enzymatic activity/volume ) 20 U/L 0-55 Serum or plasma protein measurement (mass/volume) 7.8 g/dL 6.4-8.2 Serum or plasma albumin measurement (mass/volume) 2.3 g/dL 3.2-4.5 Magnesium - 10/29/16 09:00 Magnesium 1.5 mg/dL 1.8-2.4 Serum or plasma troponin i.cardiac measurement (mass/volume) - 10/29/16 09:00 Serum or plasma troponin i.cardiac measurement (mass/volume) < ng/mL <0.30 Serum or plasma lithium measurement (moles/volume) - 10/29/16 09:00 BNP level 124.6 pg/mL <100.0 FRESH FROZEN PLASMA - 10/29/16 14:37 FRESH FROZEN PLASMA TRANSFUSED 10/29/16 1642 [facility] ABO+Rh group - 10/29/16 14:37 ABO+Rh group AP [facility] Transfusion band number [id number] [facility] Complete blood count (CBC) with automated white blood cell (WBC) differential - 10/30/16 09:31 Blood leukocytes automated count (number/volume) 2.6 10*3/ uL 4.3-11.0 Blood erythrocytes automated count (number/volume) 2.97 10*6 /uL 4.35-5.85 Venous blood hemoglobin measurement (mass/volume) 9.7 g/dL 13.3-17.7 Blood hematocrit (volume fraction) 28 % 40-54 Automated erythrocyte mean corpuscular volume 95 [foz_us] 80-99 Automated erythrocyte mean corpuscular hemoglobin (mass per erythrocyte) 33 pg 25-34 Automated erythrocyte mean corpuscular hemoglobin concentration measurement ( mass/volume) 34 g/dL 32-36 Automated erythrocyte distribution width ratio 15.6 % 10.0-14.5 Automated blood platelet count (count/volume) 33 10*3/uL 130-400 Automated blood platelet mean volume measurement 9.5 [foz_us ] 7.4-10.4 Automated blood neutrophils/100 leukocytes 62 % 42-75 Automated blood lymphocytes/100 leukocytes 23 % 12-44 Blood monocytes/100 leukocytes 13 % 0-12 Automated blood eosinophils/100 leukocytes 2 % 0-10 Automated blood basophils/100 leukocytes 0 % 0-10 Blood neutrophils automated count (number/volume) 1.6 10*3 1.8-7.8 Blood lymphocytes automated count (number/volume) 0.6 10*3 1.0-4.0 Blood monocytes automated count (number/volume) 0.3 10*3 0.0-1.0 Automated eosinophil count 0.0 10*3/uL 0.0-0.3 Automated blood basophil count (count/volume) 0.0 10*3/uL 0.0-0.1 Comprehensive metabolic panel - 10/30/16 09:31 Serum or plasma sodium measurement (moles/volume) 136 mmol/ L 135-145 Serum or plasma potassium measurement (moles/volume) 2.9 mmol/L 3.6-5.0 Serum or plasma chloride measurement (moles/volume) 97 mmol/ L 98-107 Carbon dioxide 34 mmol/L 21-32 Serum or plasma anion gap determination (moles/volume) 5 mmol/L 5-14 Serum or plasma urea nitrogen measurement (mass/volume) 21 mg/dL 7-18 Serum or plasma creatinine measurement (mass/volume) 0.93 mg /dL 0.60-1.30 Serum or plasma urea nitrogen/creatinine mass ratio 23 NRG Serum or plasma creatinine measurement with calculation of estimated glomerular filtration rate > NRG Serum or plasma glucose measurement (mass/volume) 192 mg/dL 70-105 Serum or plasma calcium measurement (mass/volume) 7.9 mg/dL 8.5-10.1 Serum or plasma total bilirubin measurement (mass/volume) 3.4 mg/dL 0.1-1.0 Serum or plasma alkaline phosphatase measurement (enzymatic activity/volume) 55 U/L 40-136 Serum or plasma aspartate aminotransferase measurement (enzymatic activity/ volume) 46 U/L 5-34 Serum or plasma alanine aminotransferase measurement (enzymatic activity/volume ) 17 U/L 0-55 Serum or plasma protein measurement (mass/volume) 6.2 g/dL 6.4-8.2 Serum or plasma albumin measurement (mass/volume) 2.0 g/dL 3.2-4.5 Complete blood count (CBC) with automated white blood cell (WBC) differential - 11/12/16 12:10 Blood leukocytes automated count (number/volume) 4.0 10*3/ uL 4.3-11.0 Blood erythrocytes automated count (number/volume) 3.72 10*6 /uL 4.35-5.85 Venous blood hemoglobin measurement (mass/volume) 12.2 g/dL 13.3-17.7 Blood hematocrit (volume fraction) 35 % 40-54 Automated erythrocyte mean corpuscular volume 94 [foz_us] 80-99 Automated erythrocyte mean corpuscular hemoglobin (mass per erythrocyte) 33 pg 25-34 Automated erythrocyte mean corpuscular hemoglobin concentration measurement ( mass/volume) 35 g/dL 32-36 Automated erythrocyte distribution width ratio 16.0 % 10.0-14.5 Automated blood platelet count (count/volume) 53 10*3/uL 130-400 Automated blood platelet mean volume measurement 9.9 [foz_us ] 7.4-10.4 Automated blood neutrophils/100 leukocytes 66 % 42-75 Automated blood lymphocytes/100 leukocytes 22 % 12-44 Blood monocytes/100 leukocytes 9 % 0-12 Automated blood eosinophils/100 leukocytes 3 % 0-10 Automated blood basophils/100 leukocytes 1 % 0-10 Blood neutrophils automated count (number/volume) 2.7 10*3 1.8-7.8 Blood lymphocytes automated count (number/volume) 0.9 10*3 1.0-4.0 Blood monocytes automated count (number/volume) 0.4 10*3 0.0-1.0 Automated eosinophil count 0.1 10*3/uL 0.0-0.3 Automated blood basophil count (count/volume) 0.0 10*3/uL 0.0-0.1 PT panel in platelet poor plasma by coagulation assay - 11/12/16 12:10 Prothrombin time (PT) in platelet poor plasma by coagulation assay 18.8 s 12.2-14.7 INR in platelet poor plasma or blood by coagulation assay 1.6 0.8-1.4 Comprehensive metabolic panel - 11/12/16 12:10 Serum or plasma sodium measurement (moles/volume) 133 mmol/ L 135-145 Serum or plasma potassium measurement (moles/volume) 3.5 mmol/L 3.6-5.0 Serum or plasma chloride measurement (moles/volume) 98 mmol/ L 98-107 Carbon dioxide 27 mmol/L 21-32 Serum or plasma anion gap determination (moles/volume) 8 mmol/L 5-14 Serum or plasma urea nitrogen measurement (mass/volume) 22 mg/dL 7-18 Serum or plasma creatinine measurement (mass/volume) 1.05 mg /dL 0.60-1.30 Serum or plasma urea nitrogen/creatinine mass ratio 21 NRG Serum or plasma creatinine measurement with calculation of estimated glomerular filtration rate > NRG Serum or plasma glucose measurement (mass/volume) 162 mg/dL 70-105 Serum or plasma calcium measurement (mass/volume) 8.4 mg/dL 8.5-10.1 Serum or plasma total bilirubin measurement (mass/volume) 3.4 mg/dL 0.1-1.0 Serum or plasma alkaline phosphatase measurement (enzymatic activity/volume) 75 U/L 40-136 Serum or plasma aspartate aminotransferase measurement (enzymatic activity/ volume) 71 U/L 5-34 Serum or plasma alanine aminotransferase measurement (enzymatic activity/volume ) 26 U/L 0-55 Serum or plasma protein measurement (mass/volume) 7.9 g/dL 6.4-8.2 Serum or plasma albumin measurement (mass/volume) 2.4 g/dL 3.2-4.5 Encounters ACCT No. Visit Date/Time Discharge Status Pt. Type Provider Facility Loc./Unit Complaint [id number] 12/29/2014 09:00:00 12/29/2014 23: 59:59 CLS Outpatient DEBORAH MAYBERRY MD [id number] 09/11/2014 13:43:00 09/11/2014 23: 59:59 CLS Outpatient DEBORAH MAYBERRY MD [id number] 02/21/2014 16:19:00 02/21/2014 23: 59:59 CLS Outpatient DEBORAH MAYBERRY MD [id number] 11/28/2013 00:00:00 11/28/2013 23: 59:59 CLS Outpatient ROZ HERR DDS [id number] 07/08/2013 11:28:00 07/08/2013 23: 59:59 CLS Outpatient DEBORAH MAYBERRY MD [id number] 10/15/2012 11:30:00 10/15/2012 23: 59:59 CLS Outpatient DEBORAH MAYBERRY MD [id number] 06/30/2011 10:57:00 06/30/2011 23: 59:59 CLS Outpatient
== END 2017-03-14 22:31 | disposition home or self-care (01) ==
LOC: EDUNIT# 19:35 → ER 19:37
DX: K72.90 Hepatic failure, unspecified without coma (principal); N17.9 Acute kidney failure, unspecified; E86.0 Dehydration; E87.5 Hyperkalemia; E87.1 Hypo-osmolality and hyponatremia; E83.42 Hypomagnesemia; J44.9 Chronic obstructive pulmonary disease, unspecified; I25.2 Old myocardial infarction; I25.10 Atherosclerotic heart disease of native coronary artery without angina pectoris; F41.9 Anxiety disorder, unspecified; I10 Essential (primary) hypertension; F17.210 Nicotine dependence, cigarettes, uncomplicated; Z87.19 Personal history of other diseases of the digestive system
CPT/HCPCS: 36415; 71010; 80053; 82140; 82150; 82550; 82553; 83605; 83690; 83735; 83880; 84484; 85025; 85610; 85730; 87040; 93005; 93041